=== PATIENT | male | born 1955 | race Caucasian/White ===

== ENCOUNTER 2024-09-07 13:06 | Outpatient (CLI) | payer OTHER, SELFPAY ==
--- NOTE | 2024-09-07 13:12 | ECG_ITS ---
Test Date: 2024-09-07 14:01:07 Measurements Intervals [place] Rate: 65 P: 106 MS: 185 QRS: 11 QRSD: 125 T: 25 QT: 406 QTc: 423 Interpretive Statements SINUS RHYTHM INCOMPLETE RIGHT BUNDLE BRANCH BLOCK BORDERLINE ECG No previous ECG available for comparison Electronically Signed On 09-08-2024 07:37:32 CDT by Hosea Martino M.D.
--- OUTSIDE RECORDS SUMMARY | 2024-09-07 13:12 | XMS_ITS | Encounter Summary ---
Author Organization [facility] Healthcare Address [address] [place] [address] Care Team Providers Care Finishing Technician Name Role Phone DamianChasidy viera RN Unavailable Unavailab le Terese Pritchard MD Primary Care Provider Encounter Details Date Type Department Care Team (Late st Contact Info) Description 09/13/2019 Telephone [facility] [address] [place] [address] Shelia Marrero, RT Social History Tobacco Use Types Packs/Day Years Used Date Smoking Tobacco: Former Cigarettes 1.5 40 1 971 - 2010 Smokeless Tobacco: Never Comments:quit 3 p pd Alcohol Use Standard Drinks/Week Comments Not Currently 0 (1 standard drink = 0.6 oz pure alcohol) quit 12 pack daily AUDIT-C Answer Date Recorded Frequency of Alcohol Consumption Never 11/25/2018 Average Number of Drinks Not on file 019 Frequency of Binge Drinking Not on file 11/02 Sex and Gender Information Value Date Recorded Sex Assigned at Not on file 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
--- OUTSIDE RECORDS SUMMARY | 2024-09-07 13:12 | XMS_ITS | Encounter Summary ---
Author Organization [facility] Address [address] [place] [address] Care Team Providers Care Staff Command And Control Officer Name Role Phone Terese Pritchard MD Primary Care Provider Tanner Bullock MD Unavailable [phone] Gurinder Wilkerson MD Unavailable [phone] Encounter Details Date Type Department Care Team (Latest Contact Info) Description 09/06/2024 Travel Social History Tobacco Use Types Packs/Day Years Used Date Smoking Tobacco: Former Cigarettes Q uit: 2012 Smokeless Tobacco: Never Alcohol Use Standard Drinks/Week Comments Not Currently 0 (1 standard drink = 0.6 oz pur e alcohol) occasional PHQ-2 Answer Date Recorded PHQ-2 Score - If the patient scores above 3, please move on to questions 3-9 0 11/27/2021 Comments Unknown Sex and Gender Information Value Date Recorded Sex Assigned at Choose not to disclose 01/2025 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 Legal Sex Male 10:05 PM MANAGER 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 Gender Identity Not on file Sexual Orientation Not on file Occupation Industry Job Start Date Job End Date Not on file Not on file Not on file Not on file documented as of this encounter Plan of Treatment Upcoming Encounters Date Type Department Care Team (Late st Contact Info) Description 10/20/2024 12:45 PM CDT Office Visit [facility] [place] [id number] Tanner Bullock MD [address] [facility] [address] [place] [address] documented as of this encounter Visit Diagnoses Not on filedocumented in this encounter Additional Health Concerns Infection Onset Date Last Indicated Resolved Time Tuberculosis Rule-Out 08/31/2024 08/31/2024 documented as of this encounter Care Teams Staff Command And Control Officer Relationship Specialty Start Date End Date Terese Pritchard MD [address] [place] [address] PCP - General FAMILY PRACTICE 11/12/18 Tanner Bullock MD [address] [facility] [address] [place] [address] Physician INTERVENTIONAL CARDIOLOGY 12/16/23 Gurinder Wilkerson MD [address] [facility] [address] [place] [address] SURGERY 09/02/24 documented as of this encounter
--- OUTSIDE RECORDS SUMMARY | 2024-09-07 13:12 | XMS_ITS | Encounter Summary ---
Author Organization [facility] Address [address] [place] [address] Care Team Providers Care Bullion Weigher Name Role Phone Terese Pritchard MD Primary Care Provider Tanner Bullock MD Unavailable [phone] Gurinder Wilkerson MD Unavailable Reason for Referral * Imaging (Routine) - Closed Specialty Diagnoses / Procedures Referred By Letitia stacy Referred To Contact RADIOLOGY Diagnoses Chronic cholecystitis Procedures US ABD LIMITED Gurinder Wilkerson MD [address] [place] [address] Phone: tel: fax: Referral ID Status Reason Start Date Expiration Date Visits Re quested Visits Authorized [id number] Closed 08/30/2024 08/30/2025 1 1 Reason for Visit * Imaging (Routine) - Closed Specialty Diagnoses / Procedures Referred By Letitia stacy Referred To Contact RADIOLOGY Diagnoses Chronic cholecystitis Procedures US ABD LIMITED Gurinder Wilkerson MD [address] [place] [address] Phone: tel: fax: Referral ID Status Reason Start Date Expiration Date Visits Re quested Visits Authorized [id number] Closed 08/30/2024 08/30/2025 1 1 Encounter Details Date Type Department Care Team (Late st Contact Info) Description 09/06/2024 8:51 AM CDT Hospital Encounter [facility] Ultrasound [address] [facility] [place], [place] [id number] Gurinder Wilkerson MD [address] [place] [address] Arrived Social History Tobacco Use Types Packs/Day Years Used Date Smoking Tobacco: Former Cigarettes Q uit: 2011 Smokeless Tobacco: Never Alcohol Use Standard Drinks/Week Comments Not Currently 0 (1 standard drink = 0.6 oz pur e alcohol) occasional PHQ-2 Answer Date Recorded PHQ-2 Score - If the patient scores above 3, please move on to questions 3-9 0 11/27/2021 Comments Unknown Sex and Gender Information Value Date Recorded Sex Assigned at Choose not to disclose 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 Gender Identity Not on file Sexual Orientation Not on file Occupation Industry Job Start Date Job End Date Not on file Not on file Not on file Not on file documented as of this encounter Plan of Treatment Upcoming Encounters Date Type Department Care Team ([facility] Contact Info) Description 10/20/2024 12:45 PM CDT Office Visit [facility] [place] [address] Tanner Bullock MD [address] [facility] [address] [address] documented as of this encounter Procedures Procedure Name Priority Date/Time Associated Diagnosis Comments US ABD LIMITED Routine 09/06/2024 9:33 AM CDT Chronic cholecystitis documented in this encounter Results * US ABD LIMITED (09/06/2024 9:33 AM CDT) Anatomical Region Laterality Modality Abdomen Computed Tomogra phy 09/06/2024 1:39 PM CDT Impressions 09/06/2024 1:46 PM CDT IMPRESSION: 1. Dilated gallbladder with multiple polyps. No gallbladder wall thickening or adjacent fluid. There was pain while imaging over the gallbladder. 2. Dilated common bile duct measuring 1.1 cm. 3. Hepatomegaly with fatty infiltration of the liver. 4. Cystic lesion within the head of the pancreas measuring 2.7 x 2.9 x 2.7 cm. Maximum axial dimension of this cyst on recent CT was 2.8 x 3.2 cm. Ordered By: GURINDER WILKERSON Interpreted By: Dulce Maria Ratliff, 09/06/2024 1:39 PM Narrative 09/06/2024 1:46 PM CDT [address] [place] [address] IMAGING STUDIES: US ABD LIMITED DATE: 09/06/2024 8:51 AM COMPARISON STUDIES: CT abdomen of 08/05/2024 CLINICAL HISTORY: Chronic cholecystitis. FINDINGS: Dilated enlarged gallbladder measuring up to 11.3 cm. No gallbladder wall thickening or adjacent fluid. There are multiple hyperechoic gallbladder polyps. No distinct shadowing foci.. Largest polyp measures 7 mm. There was pain while imaging over the gallbladder. Moderate fatty infiltration of the liver without focal mass..Hepatic and portal veins are patent.. Common bile duct measures.1.1 cm. Upper limits of normal in this age group is 7 mm. Hepatomegaly with cc dimension of 24 cm.. Right kidney is partially visualized without gross hydronephrosis. Partially visualized pancreas demonstrates cystic lesion within the head of the pancreas measuring 2.7 x 2.9 x 2.7 cm. Maximum axial dimension of this cyst on recent CT was 2.8 x 3.2 cm.. IVC is patent. Aorta could not be evaluated due to overlying bowel. Atherosclerotic nondilated aorta on recent CT. Procedure Note Enoch Ratliff MD - 09/06/[address] [place] [address] IMAGING STUDIES: US ABD LIMITED DATE: 09/06/2024 8:51 AM COMPARISON STUDIES: CT abdomen of 08/05/2024 CLINICAL HISTORY: Chronic cholecystitis. FINDINGS: Dilated enlarged gallbladder measuring up to 11.3 cm. No gallbladder wallthickening or adjacent fluid. There are multiple hyperechoic gallbladder polyps. No distinct shadowingfoci.. Largest polyp measures 7 mm. There was pain while imaging over the gallbladder. Moderate fatty infiltration of the liver without focal mass..Hepatic andportal veins are patent.. Common bile duct measures.1.1 cm. Upper limitsof normal in this age group is 7 mm. Hepatomegaly with cc dimension of 24 cm.. Right kidney is partially visualized without gross hydronephrosis. Partially visualized pancreas demonstrates cystic lesion within the headof the pancreas measuring 2.7 x 2.9 x 2.7 cm. Maximum axial dimension ofthis cyst on recent CT was 2.8 x 3.2 cm.. IVC is patent. Aorta could not be evaluated due to overlying bowel.Atherosclerotic nondilated aorta on recent CT. IMPRESSION: 1. Dilated gallbladder with multiple polyps. No gallbladder wallthickening or adjacent fluid. There was pain while imaging over thegallbladder. 2. Dilated common bile duct measuring 1.1 cm. 3. Hepatomegaly with fatty infiltration of the liver. 4. Cystic lesion within the head of the pancreas measuring 2.7 x 2.9 x2.7 cm. Maximum axial dimension of this cyst on recent CT was 2.8 x 3.2cm. Ordered By: GURINDER WILKERSON Interpreted By: Dulce Maria Ratliff, 09/06/2024 1:39 PM Gurinder Wilkerson MD ULTRASOUND Final Result documented in this encounter Visit Diagnoses Diagnosis Chronic cholecystitis documented in this encounter Additional Health Concerns Infection Onset Date Last Indicated Resolved Time Tuberculosis Rule-Out 08/31/2024 08/31/2024 documented as of this encounter Care Teams Bullion Weigher Relationship Specialty Start Date End Date Terese Pritchard MD [address] [place] [address] PCP - General FAMILY PRACTICE 11/12/18 Tanner Bullock MD [address] [facility] [address] [place] [address] Physician INTERVENTIONAL CARDIOLOGY 12/16/23 Gurinder Wilkerson MD [address] [place] [address] SURGERY 09/02/24 documented as of this encounter
--- OUTSIDE RECORDS SUMMARY | 2024-09-07 13:12 | XMS_ITS | Encounter Summary ---
Author Organization [facility] Address [address] [place] [address] Care Team Providers Care Visual Communications Instructor Name Role Phone Terese Pritchard MD Primary Care Provider Tanner Bullock MD Unavailable [phone] Gurinder Wilkerson MD Unavailable [phone] Encounter Details Date Type Department Care Team (Late st Contact Info) Description 12/25/2021 Medication Management [facility] Medical [facility] General Surgery - [address], [address] [place] [id number] Terese Pritchard MD [address] [place] [id number] Social History Tobacco Use Types Packs/Day Years [...] Choose not to disclose 01/2025 10:02 AM 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 No / Unsure 11/27/2021 1:23 PM CDT documented as of this encounter Plan of Treatment Upcoming Encounters Date Type Department Care Team (Late st Contact Info) Description 10/20/2024 12:45 PM CDT Office Visit [facility] [address] [place] [address] Tanner Bullock MD [address], [facility] [address] [place] [address] documented as of this encounter Visit Diagnoses Not on filedocumented in this encounter Additional Health Concerns Infection Onset Date Last Indicated Resolved Time Tuberculosis Rule-Out 08/31/2024 08/31/2024 documented as of this encounter Care Teams Visual Communications Instructor Relationship Specialty Start Date End Date Terese Pritchard MD [address] [place] [address] PCP - General FAMILY PRACTICE 11/12/18 Tanner Bullock MD [address], [facility] [address] [place] [address] Physician INTERVENTIONAL CARDIOLOGY 12/16/23 Gurinder Wilkerson MD [address] [facility] [address] [place] [address] SURGERY 09/02/24 documented as of this encounter
--- OUTSIDE RECORDS SUMMARY | 2024-09-07 13:13 | XMS_ITS | Clinical Summary ---
Author Organization [facility] Address [address] [place] [address] Care Team Providers Care Shoe Maker Name Role Phone Terese Victor MD Primary Care Provider Tanner Bullock MD Unavailable [phone] Gurinder Guevara MD Unavailable [phone] Allergies Active Allergy Reactions Criticality Noted Date Comments Atorvastatin Myalgias 12/16/2023 Cilostazol Other (see comment) Low 01/25/2019 if coughed would black out Morphine Itching,Nausea Only Low 11/25/2018 Tirzepatide Rash Medium 08/19/2023 Injection site reaction Rosuvastatin Myalgias Medium 11/25/2018 Muscle weakness Medications gemfibrozil 600 MG tablet Take 1 tablet (600 mg total) by mouth 2 (two) times daily. 9 Active acetaminophen 500 MG tablet Take 6-8 tablets (3,000-4,000 mg total) by mouth daily. 9 Active DULoxetine (CYMBALTA) 30 MG capsule Take 1 capsule (30 mg total) by mouth nightly at bedtime. at bedtime 2 Active econazole nitrate (SPECTAZOLE) 1 % cream Apply 1 Application topically. 2 Active HYDROcodone-steve taminophen (NORCO) 5-325 MG tablet Take 1 tablet by mouth 4 (four) times daily as needed. 2 Active clopidogrel (PLAVIX) 75 MG tablet Take 1 tablet (75 mg total) by mouth daily. 4 Active fluticasone propionate (FLONASE) 50 MCG/ACT nasal spray 1 spray by Nasal route 2 (two) times daily. Active losartan (COZAAR) 50 MG tablet Take 1 tablet (50 mg total) by mouth 2 (two) times daily. 4 Active meloxicam (MOBIC) 15 MG tablet Take 1 tablet (15 mg total) by mouth daily. 4 Active potassium chloride CR (K-TAB) 10 MEQ Tab CR tablet Take 1 tablet (10 mEq total) by mouth daily. 4 Active furosemide (LASIX) 20 MG tablet Take 1 tablet (20 mg total) by mouth daily. 4 Active amLODIPine (NORVASC) 5 MG tablet Take 1 tablet (5 mg total) by mouth daily. Take 1/2 tablet a day for three days then take 1 tab a day 90 tablet 3 4 12/17/19 25 Active OZEMPIC 2 mg/dose injection (PEN) Inject 2 mg into the skin once a week. 5 Active omega-3 fatty acid (FISH OIL) 1000 MG capsule Take 1 capsule (1,000 mg total) by mouth 2 (two) times daily. 180 capsule 3 5 03/29/19 26 Active alirocumab (PRALUENT) 75 mg/mL injection (PEN) Inject 1 mL (75 mg total) into the skin every 14 (fourteen) days. 6 mL 3 5 06/16/19 26 Active Active Problems Problem Noted Date Diagnosed Date Class 3 severe obesity due t o excess calories without serious comorbidity with body mass index (BMI) of 40.0 to 44.9 in adult 12/17/2023 Encounter for screening for malignant neoplasm o f colon 12/31/2021 Overview (12/31/2021): Added automatically from request for surgery [id number] PVD (peripheral vascular disease) 11/13/2018 Shortness of breath Mixed hyperlipidemia NAIF on CPAP Overview (12/17/2023): does not use his CPAP Encounters Date Type Department Care Team Description 09/06/2024 8:51 AM CDT Hospital Encounter [address] [place] [address] Gurinder Guevara MD Arrived 09/06/2024 Travel 09/02/2024 Telephone [facility] [address] [place] [address] Tanner Bullock MD Surgical Clearance 08/31/2024 12:23 PM CDT - 08/31/2024 11:59 PM CDT Hospital Encounter [facility] [address] Brenda Spain MD Discharge Disposition: Home or Self Care (Routine Discharge) 08/31/2024 12:23 PM CDT - 08/31/2024 11:59 PM CDT Hospital Encounter [facility] [place] [place] [address] Brenda Spain MD Discharge Disposition: Home or Self Care (Routine Discharge) 08/31/2024 Travel 08/31/2024 Telephone [facility] [address] [place] [address] Tanner Bullock MD Surgical Clearance 08/24/2024 Orders Only [facility] [place] [place] [address] Megan Dawkins MD 08/24/2024 Hospital Orders Only [facility] [place] [place] [address] Megan Dawkins MD 08/12/2024 7:49 AM CDT - 08/12/2024 11:59 PM CDT Hospital Encounter [facility] [address] [place] [address] Terese Victor MD Discharge Disposition: Home or Self Care (Routine Discharge) 2024 12:19 PM CDT - 2024 11:59 PM CDT Hospital Encounter [facility] CT [address] [place] [address] Terese Victor MD Discharge Disposition: Home or Self Care (Routine Discharge) 2024 Travel 08/05/2024 10:58 AM CDT - 08/05/2024 11:59 PM CDT Hospital Encounter [facility] CT [address] [place] [address] Terese Victor MD Discharge Disposition: Home or Self Care (Routine Discharge) 08/05/2024 9:00 AM CDT - 08/05/2024 10:57 AM CDT Hospital Encounter [facility] [address] [place] [address] Terese Victor MD Discharge Disposition: Home or Self Care (Routine Discharge) 08/05/2024 Orders Only [facility] [address] [place] [address] Terese Victor MD 08/05/2024 Travel 06/15/[address] [facility] ie [address] [place] [address] Tanner Bullock MD Medication (Refil/fill) from Last 3 Months Family History Relation Status Comments Father Mother Social History Tobacco Use Types Packs/Day Years Used Date Smoking Tobacco: Former Cigarettes Q uit: 2012 Smokeless Tobacco: Never Tobacco Cessation:Counseling Given: Not Answered Alcohol Use Standard Drinks/Week Comments Not Currently 0 (1 standard drink = 0.6 oz pur e alcohol) occasional PHQ-2 Answer Date Recorded PHQ-2 Score - If the patient scores above 3, please move on to questions 3-9 0 11/27/2021 Comments Unknown Sex and Gender Information Value Date Recorded Sex Assigned at Choose not to disclose 01/2025 10:02 AM [employer] Legal Sex Male 10:05 PM [employer] Gender Identity Not on file Sexual Orientation Not on file Occupation Industry Job Start Date Job End Date Not on file Not on file Not on file Not on file Last Filed Vital Signs Vital Sign Reading Time Taken Comments Blood Pressure 136/84 04/19/2024 2:09 PM [employer] Pulse 64 04/19/2024 2:09 PM [employer] Temperature 36.3 C (97.3 F) 12/04/2022 8:08 AM CDT Respiratory Rate 18 04/19/2024 2:09 PM [employer] Oxygen Saturation 98% 04/19/2024 2:09 PM [employer] Inhaled Oxygen Concentration - - Weight 131.7 kg (290 lb 6.4 oz) 04/19/2024 2:09 PM [employer] Height 182.2 cm (5' 11.75) 04/19/2024 2:[address] Body Mass Index 39.66 04/19/2024 2:09 PM [employer] Plan of Treatment Upcoming Encounters Date Type Department Care Team (Late st Contact Info) Description 10/20/2024 12:45 PM CDT Office Visit [facility] [place] [address] Tanner Bullock MD [address] [facility] [address] [place] [address] Health Maintenance Due Date Last Done Comments Colorectal Cancer Screening Colonoscopy (10 Years) 1955 Hepatitis C 08/10/1973 DTaP, Tdap and Td Vaccines ( 1 - Tdap) 08/10/1974 RSV Immunization or 60+ Years (1 - Risk 60-74 years 1-dose series) 2015 Pneumococcal Vaccine: 50+ Years (2 of 2 - PCV) 01/03/2016 01/02/2015 Zoster Vaccines (3 of 3) 03/09/2019 019, 03/14/2014 Annual Medicare Wellness Visit 08/10/2020 COVID-19 Vaccine (4 2023-2 5 season) 2023 12/18/2020, 05/27/2020, 04/28/2020 PHQ-2 (Physician [place]) 03/03/2024 Meningococcal B Vaccine Aged Out No l onger eligible based on patient's age to complete this topic Meningococcal Vaccine Aged Out No pamela carolina eligible based on patient's age to complete this topic RSV Immunizations Under 20 Months Aged Out No longer eligible b ased on patient's age to complete this topic Medical Devices Implanted Type Area Ruffling Machine Operator Device Identifier Shelf Expiration Date Model / Serial / Lot Iol Nish Duarte [id number] - [id number] Implanted:Qty: 1 on 12/04/2022 by Madelaine Whitley MD at [facility] Lens Right: Eye [employer] [id number] 12/30/2024 [id number] / [id number] / NONE Procedures Procedure Name Priority Date/Time Associated Diagnosis Comments US ABD LIMITED Routine 09/06/2024 9:33 AM CDT Chronic cholecystitis IR US GD PARA THYROID CYST ASPIR Routine 08/31/2024 2:21 PM CDT Mass of left side of neck CULTURE, WOUND, W/GRAM STAIN Routine 08/31/2024 2:10 PM CDT CULTURE, TB/AFB W/ STAIN Routine 08/31/2024 2:10 PM CDT Mass of left side of neck CULTURE, FUNGUS W/ STAIN Routine 08/31/2024 2:10 PM CDT Mass of left side of neck CULTURE, ANAEROBIC Routine 08/31/2024 2: 10 PM CDT Mass of left side of neck PLATELET COUNT, AUTO Routine 08/31/2024 12:30 PM CDT Neck mass PARTIAL THROMBOPLASTIN TIME,PTT Routine 08/31/2024 12:30 PM CDT Neck mass PROTHROMBIN TIME, VENOUS Routine 08/31/2024 12:30 PM CDT Neck mass CYTOLOGY GENERIC Routine 08/31/2024 12:0 0 AM CDT NM HEPATOBILIARY SCAN W/GB EJECTION FRACTION STAT 08/12/2024 11:10 AM CDT Generalized abdominal pain Other specified diseases of gallbladder CT SOFT TISSUE NECK W CON STAT 2024 12:48 PM CDT Neck mass CT ABD+PEL W CON STAT 08/05/2024 11:4 7 AM CDT Abdominal pain, generalized US SOFT TISS HEAD OR NECK STAT 08/05/2024 11:34 AM CDT Mass of left side of neck COMPREHENSIVE METABOLIC PANEL STAT 08/05/2024 9:02 AM CDT Abdominal pain, generalized CBC W/DIFF AUTOMATED STAT 08/05/2024 9:02 AM CDT Abdominal pain, generalized from Last 3 Months Results * US ABD LIMITED (09/06/2024 9:33 [...] 2.8 x 3.2 cm. Ordered By: GURINDER GUEVARA Interpreted By: Dulce Maria Ratliff, 09/06/2024 1:39 PM Narrative 09/06/2024 1:46 PM CDT [address] [place] [address] IMAGING STUDIES: US ABD LIMITED DATE: 09/06/2024 [...] Procedure Note Enoch Ratliff MD - 09/06/[address] [place] [address] IMAGING STUDIES: US ABD LIMITED DATE: 09/06/2024 [...] was 2.8 x 3.2cm. Ordered By: GURINDER GUEVARA Interpreted By: Dulce Maria Ratliff, 09/06/2024 1:39 PM us Gurinder Guevara MD ULTRASOUND Final Result * IR US GD PARA THYROID CYST ASPIR (08/31/2024 2:21 PM CDT) Anatomical Region Laterality Modality Thyroid Interventional R adiology, Radiographic Imaging, Radiographic Imaging 08/31/2024 2:36 PM CDT Impressions 08/31/2024 2:40 PM CDT IMPRESSION: 1. Right submandibular region 3.4 x 2.1 x 3.1 cm cystic lesion by ultrasound corresponding with the CT neck finding. 2. PA Ultrasound-guided needle aspiration performed yielding 10.1 mL of yellow slightly cloudy fluid with complete resolution of cystic focus; fluid sent for analysis Ordered By: BRENDA SPAIN Interpreted By: Megan Dawkins MD, 08/31/2024 2:36 PM Narrative 08/31/2024 2:40 PM CDT [address] [address] Procedure: IR ultrasound-guided left neck lesion needle aspiration Exam Date/Time: 08/31/2024 2:20 PM Indication: 69 male with left neck submandibular lesion presenting for needle aspiration versus fine-needle sampling versus needle biopsy Comparison: CT soft tissue neck 2024 Procedure technique and findings: Informed verbal and consent was obtained from the patient. The procedure was discussed including the rationale, alternatives, benefits and risks including but not limited to infection, bleeding and damage to adjacent structures and inability to sample the lesion. Was performed showing a superficial the circumscribed anechoic cystic lesion with increased through transmission measuring 3.4 x 2.1 x 3.[address] neck finding. Based on its ultrasound appearance and decision was made to proceed with needle aspiration.. Timeout was performed. Sterile ultrasound technique, including hand wash with soap and water, was employed for the procedure. 1% lidocaine was administered for local anesthesia at the skin. 21-gauge needle was then advanced under ultrasound guidance into the center of the lesion and syringe aspiration performed yielding 10.1 mL of yellowish slightly cloudy fluid with complete collapse of the collection. Residual 1 cm slightly hypoechoic focus likely representing collapsed abdi of the lesion. The sample was collected and sent for analysis. No Fine-needle aspiration or biopsy sampling performed The patient remained asymptomatic tolerating the procedure well. No immediate complication. Procedure Note Megan Dawkins MD - 08/31/2024 [facility] [address] [place], [place] [address] Procedure: IR ultrasound-guided left neck lesion needle aspiration Exam Date/Time: 08/31/2024 2:20 PM Indication: 69 male with left neck submandibular lesion presenting forneedle aspiration versus fine-needle sampling versus needle biopsy Comparison: CT soft tissue neck 2024 Procedure technique and findings: Informed verbal and consent was obtained from the patient. The procedurewas discussed including the rationale, alternatives, benefits and risksincluding but not limited to infection, bleeding and damage to adjacentstructures and inability to sample the lesion. Was performed showing a superficial the circumscribed anechoic cysticlesion with increased through transmission measuring 3.4 x 2.1 x 3.1corresponding to the CT neck finding. Based on its ultrasound appearanceand decision was made to proceed with needle aspiration.. Timeout was performed. Sterile ultrasound technique, including hand wash with soap and water, wasemployed for the procedure. 1% lidocaine was administered for localanesthesia at the skin. 21-gauge needle was then advanced under ultrasoundguidance into the center of the lesion and syringe aspiration performedyielding 10.1 mL of yellowish slightly cloudy fluid with complete collapseof the collection. Residual 1 cm slightly hypoechoic focus likelyrepresenting collapsed abdi of the lesion. The sample was collected andsent for analysis. No Fine-needle aspiration or biopsy sampling performed The patient remained asymptomatic tolerating the procedure well. Noimmediate complication. IMPRESSION: 1. Right submandibular region 3.4 x 2.1 x 3.1 cm cystic lesion byultrasound corresponding with the CT neck finding. 2. PA Ultrasound-guided needle aspiration performed yielding 10.1 mL ofyellow slightly cloudy fluid with complete resolution of cystic focus;fluid sent for analysis Ordered By: BRENDA SPAIN Interpreted By: Megan Dawkins MD, 08/31/2024 2:36 PM us Brenda Spain MD INTERVENTIONAL RADIOLOGY Final Result * CULTURE, WOUND, W/GRAM STAIN (08/31/2024 2:10 PM CDT) SPEC DESCRIPTION NECK 08/31/2024 3:20 PM CDT [facility] SPECIAL REQUESTS NO SPECIAL REQUEST 08/31/2024 3:20 PM CDT [facility] GRAM STAIN RESULT NO WHITE BLOOD CELLS SEEN 08/31/2024 10:27 PM CDT [facility] GRAM STAIN RESULT NO ORGANISMS SEEN 08/31/2024 10:27 PM CDT [facility] CULTURE RESULT NO GROWTH 3 DAYS 09/03/2024 8:06 AM CDT [facility] SPECIMEN FROM HEAD AND NECK STRUCTURE / Unknown 08/31/2024 2:10 PM CDT 08/31/2024 3:18 PM CDT us Megan Dawkins MD MICROBIOLOGY - GENERAL ORDERABL ES Final Result [facility] [address] [place] [address], [place] [phone] * CULTURE ANAEROBIC (08/31/2024 2:10 PM CDT) SPEC DESCRIPTION ASPIRATE 08/31/2024 2:11 PM CDT [facility] SPECIAL REQUESTS NO SPECIAL REQUEST 08/31/2024 2:11 PM CDT [facility] CULTURE RESULT NO ANAEROBES ISOLATED AT 5 DAYS. 09/05/2024 7:00 AM CDT [facility] SPECIMEN OBTAINED BY ASPIRATION / Unknown 08/31/2024 2:10 PM CDT 08/31/2024 2:52 PM CDT us Megan Dawkins MD MICROBIOLOGY - GENERAL ORDERABL ES Final Result [facility] [address] [place] [address], [place] [phone] * (ABNORMAL) PLATELET COUNT, AUTO (08/31/2024 12:30 PM CDT) PLT 198 130 - 400 x10'3/uL 08/31/2024 12:40 PM CDT [facility] MPV 9.0(L) 9.3 - 12.2 FL 08/31/2024 12:40 PM CDT [facility] 08/31/2024 12:3 0 PM CDT us Megan Dawkins MD LABORATORY Final Result Performing Organization Address City/[facility]/ZIP Co de Phone Number [facility] [address] [place] [address], [place] [phone] * (ABNORMAL) PTT, PARTIAL THROMBOPLASTIN TIME (08/31/2024 12:30 PM CDT) PTT 36.8(H) 25.1 - 36.5 SEC 08/31/2024 1:35 PM CDT [facility] 08/31/2024 12:3 0 PM CDT us Megan Dawkins MD LABORATORY Final Result Performing Organization Address [facility]/ZIP Co de Phone Number [facility] [address] [place] [address], [place] [phone] * PROTIME/INR, VENOUS (08/31/2024 12:30 PM CDT) PROTIME 11.9 10.2 - 12.9 SEC 08/31/2024 1:35 PM CDT [facility] INR 1.0 08/31/2024 1:35 PM CDT [facility] Comment: Recommended INR Therapeutic Goals: 2.0-3.0 Routine Therapy 2.5-3.5 Mechanical Prosthetic Valves (High Risk) 08/31/2024 12:3 0 PM CDT Megan Dawkins MD LABORATORY Final Result [facility] [address] [place] [address], * CYTOLOGY GENERIC (08/31/2024 12:00 AM CDT) CYTOLOGY OTHER [facility] Department of Laboratory Medicine [address] [place] [address] , extension [id number] Pathology Report Non-gynecologic Cytology Report Name: DEMETRIUS SAENZ Specimen #: [id number] Age: 6 1955 (Age: 69) Location: [facility] Sex: M Procedure Date: 08/31/2024 Hospital #: [id number] Date Received: 09/01/2024 Date Reported: 09/03/2024 Provider: BRENDA SPAIN MD Source: CYST, RIGHT SUBMANDIBULAR, ASPIRATION Clinical History: Mass of left side of neck FINAL DIAGNOSIS: Cyst, right submandibular, aspiration: -Satisfactory for evaluation -Negative for malignant cells -Cyst contents and crystals Diagnosis Comment: The predominate crystals 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 Gross Description: SPECIMEN RECEIVED: 30 cc's in cytology fixative SLIDES PREPARED: 1 ThinPrep, all slides were microscopically examined by a pathologist. STAINS: Papanicolaou Initial cytologic screening, interpretation, and sign out were performed at [facility], [address] [facility] [address]. Electronically Signed Out BRIAN SANTO MD [facility] 08/31/2024 09/01/2024 11:52 AM CDT Comment:CYST, RIGHT SUBMANDI BULAR, ASPIRATION us Brenda Spain MD PATHOLOGY/CYTOLOGY ORDERABLES F inal Result [facility] [address] [place] [address], [place] [phone] [id number] * NM HEPATOBILIARY SCAN W/GB EJECTION FRACTION (08/12/2024 11:10 AM CDT) Anatomical Region Laterality Modality Abdomen Computed Tomogra phy 08/12/2024 11:1 6 AM CDT Impressions 08/12/2024 11:20 AM CDT IMPRESSION: 1. Delayed visualization of the gallbladder with low ejection fraction. Consistent with gallbladder dysfunction versus chronic cholecystitis. Ordered By: TERESE VICTOR Interpreted By: Dulce Maria Ratliff, 08/12/2024 11:16 AM Narrative 08/12/2024 11:20 AM CDT [address] [place] [address] IMAGING STUDIES: NM HEPATOBILIARY SCAN W/GB EJECTION FRACTION DATE: 08/12/2024 8:00 AM INDICATION: Abdominal pain . Nausea. Constipation. Symptoms for 3 weeks. COMPARISON: No prior studies for comparison.. Correlation with CT abdomen of 08/05/2024 6.5 mCi technetium 99M Choletec, 8 ounces of fatty ensure meal with 11 g of fat consumed at 120 minutes postinjection FINDINGS: Normal uptake of radionuclide within the liver. Gallbladder is seen at 90 minutes. Markedly delayed. Gallbladder ejection fraction measures 2%. Normal is above 35% No evidence of cystic duct or common bile duct obstruction. Procedure Note Enoch Ratliff MD - 08/12/[address] [place] [address] IMAGING STUDIES: NM HEPATOBILIARY SCAN W/GB EJECTION FRACTIONDATE:08/12/2024 8:00 AM INDICATION: Abdominal pain . Nausea. Constipation. Symptoms for 3weeks. COMPARISON: No prior studies for comparison.. Correlation with CT abdomenof 08/05/2024 6.5 mCi technetium 99M Choletec, 8 ounces of fatty ensure meal with 11 gof fat consumed at 120 minutes postinjection FINDINGS: Normal uptake of radionuclide within the liver. Gallbladder is seen at 90minutes. Markedly delayed. Gallbladder ejection fraction measures 2%. Normal is above 35% No evidence of cystic duct or common bile duct obstruction. IMPRESSION: 1. Delayed visualization of the gallbladder with low ejection fraction.Consistent with gallbladder dysfunction versus chronic cholecystitis. Ordered By: TERESE VICTOR Interpreted By: Dulce Maria Ratliff, 08/12/2024 11:16 AM Terese Victor MD NUC MED Final Result * CT SOFT TISSUE NECK W CON (2024 12:48 PM CDT) Anatomical Region Laterality Modality Neck Computed Tomogra phy 2024 1:37 PM CDT Impressions 2024 1:46 PM CDT IMPRESSION: 1) Palpable abnormality corresponds to a 3.1 x 2.4 cm cystic mass lateral to the left submandibular gland. This is not specific, however differential diagnosis could include cystic lymph node metastasis. Correlation with ultrasound evaluation of the left neck cystic mass would be recommended. In addition, ultrasound of the thyroid gland would be recommended as the thyroid gland is obscured by streak artifact on this study. Ultimately, ultrasound-guided aspiration of this lesion may be required for diagnosis. Ordered By: TERESE VICTOR Interpreted By: Pierre Montes MD, 2024 1:37 PM Narrative 2024 1:46 PM CDT [address] [place] [address] Examination: CT SOFT TISSUE NECK W CON Exam time: 2024 12:24 PM Clinical history: Left submandibular palpable abnormality for several weeks Comparison: None Technique: Axial images obtained from skull base to lung apices with intravenous injection of 95 mL Isovue 370 contrast using low-dose CT technique. Findings: Visualized portions of the skull base are unremarkable. No orbital lesions are demonstrated. Visualized paranasal sinuses are clear. Mastoid air cells are clear. The nasopharynx and the oropharynx are grossly unremarkable. There is no abnormal displacement of parapharyngeal fat pads. The epiglottis/supraglottic larynx, hypopharynx and larynx are unremarkable. Parotid and submandibular glands are normal in appearance bilaterally. The thyroid gland is significantly obscured by streak artifact from the patient's shoulders. A subtle thyroid lesion could not be excluded based on this study. The palpable abnormality corresponds to a superficial cystic mass in the left posterior submandibular region measuring measuring 3.1 x 2.4 cm. This is immediately deep to the platysma and lateral to the submandibular gland. This is not specific, however cystic lymph node metastasis could not be excluded and this will require further evaluation. There is no inflammatory change to suggest infection/cellulitis. No other evidence of neck mass or adenopathy is demonstrated. Chronic degenerative changes lower cervical spine. Procedure Note Pierre Montes MD - [address] [place] [address] Examination: CT SOFT TISSUE NECK W CON Exam time: 2024 12:24 PM Clinical history: Left submandibular palpable abnormality for severalweeks Comparison: None Technique: Axial images obtained from skull base to lung apices withintravenous injection of 95 mL Isovue 370 contrast using low-dose CTtechnique. Findings: Visualized portions of the skull base are unremarkable. Noorbital lesions are demonstrated. Visualized paranasal sinuses are clear.Mastoid air cells are clear. The nasopharynx and the oropharynx are grossly unremarkable. There is noabnormal displacement of parapharyngeal fat pads. The epiglottis/supraglottic larynx, hypopharynx and larynx areunremarkable. Parotid and submandibular glands are normal in appearancebilaterally. The thyroid gland is significantly obscured by streakartifact from the patient's shoulders. A subtle thyroid lesion could notbe excluded based on this study. The palpable abnormality corresponds to a superficial cystic mass in theleft posterior submandibular region measuring measuring 3.1 x 2.4 cm. Thisis immediately deep to the platysma and lateral to the submandibulargland. This is not specific, however cystic lymph node metastasis couldnot be excluded and this will require further evaluation. There is noinflammatory change to suggest infection/cellulitis. No other evidence of neck mass or adenopathy is demonstrated. Chronicdegenerative changes lower cervical spine. IMPRESSION: 1) Palpable abnormality corresponds to a 3.1 x 2.4 cm cystic mass lateralto the left submandibular gland. This is not specific, howeverdifferential diagnosis could include cystic lymph node metastasis.Correlation with ultrasound evaluation of the left neck cystic mass wouldbe recommended. In addition, ultrasound of the thyroid gland would berecommended as the thyroid gland is obscured by streak artifact on thisstudy. Ultimately, ultrasound-guided aspiration of this lesion may berequired for diagnosis. Ordered By: TERESE VICTOR Interpreted By: Pierre Montes MD, 2024 1:37 PM Terese Victor MD CT Final Result * CT ABD+PEL W CON (08/05/2024 11:47 AM CDT) Anatomical Region Laterality Modality Abdomen Computed Tomogra phy 08/05/2024 11:5 6 AM CDT Impressions 08/05/2024 11:59 AM CDT IMPRESSION: 1. Large cyst within the head of the pancreas. Endoscopic ultrasound is recommended for further characterization 2. Moderate to severe distention of the gallbladder without evidence of stones Ordered By: TERESE VICTOR Interpreted By: Philippe Donahue MD, 08/05/2024 11:56 AM Narrative 08/05/2024 11:59 AM CDT [address] [place] [address] [address] ABDOMEN AND PELVIS WITH CONTRAST Exam date:08/05/2024 11:28 AM Clinical history: Abdomen pain. Technique: Dynamic helical images of the abdomen and pelvis were obtained. The patient received approximately 100 mL of Isovue 370 nonionic intravenous contrast through an IV in the right antecubital fossa. A dose lowering technique was used for this procedure, which may include, but is not limited to, dose reduction technique, automated exposure control, the use of iterative reconstruction, and ALARA (As Low As Reasonably Achievable) / Image Gently techniques. Comparison: July 08, 2022. FINDINGS: Images of the lower thorax demonstrate the visualized portion of the heart to appear normal. The lung bases are clear. Images of the abdomen demonstrate the overall size and morphology of the liver to be within normal limits. No hepatic lesions are observed. No ascites is seen. The gallbladder is moderate to severely distended. No stones are observed. There is no evidence to suggest cholecystitis. There is a large cyst within the head of the pancreas. This measures approximately 2.8 x 3.8 x 3.5 cm in greatest dimensions. There is no enhancement of the peripheral aspect of this cyst. However, given the size endoscopic ultrasound is recommended for further characterization. The remainder the pancreas is within normal limits. The spleen and adrenal glands appear normal. The kidneys are normal in size bilaterally. There is normal symmetric enhancement after the administration of contrast. No stones or hydronephrosis is apparent. Both ureters follow normal expected course through the retroperitoneum. Images of the pelvis demonstrate the urinary bladder to appear normal. The prostate is normal in size. The stomach and small bowel have a normal overall appearance. The colon appears normal. No adenopathy or abnormal fluid collections are present Procedure Note Philippe Donahue MD - 08/05/[address] [place] [address] [address] ABDOMEN AND PELVIS WITH CONTRAST Exam date:08/05/2024 11:28 AM Clinical history: Abdomen pain. Technique: Dynamic helical images of the abdomen and pelvis were obtained.The patient received approximately 100 mL of Isovue 370 nonionicintravenous contrast through an IV in the right antecubital fossa. A doselowering technique was used for this procedure, which may include, but isnot limited to, dose reduction technique, automated exposure control, theuse of iterative reconstruction, and ALARA (As Low As ReasonablyAchievable) / Image Gently techniques. Comparison: July 08, 2022. FINDINGS: Images of the lower thorax demonstrate the visualized portion of the heartto appear normal. The lung bases are clear. Images of the abdomen demonstrate the overall size and morphology of theliver to be within normal limits. No hepatic lesions are observed. Noascites is seen. The gallbladder is moderate to severely distended. Nostones are observed. There is no evidence to suggest cholecystitis. Thereis a large cyst within the head of the pancreas. This measuresapproximately 2.8 x 3.8 x 3.5 cm in greatest dimensions. There is noenhancement of the peripheral aspect of this cyst. However, given the sizeendoscopic ultrasound is recommended for further characterization. Theremainder the pancreas is within normal limits. The spleen and adrenalglands appear normal. The kidneys are normal in size bilaterally. There isnormal symmetric enhancement after the administration of contrast. Nostones or hydronephrosis is apparent. Both ureters follow normal expectedcourse through the retroperitoneum. Images of the pelvis demonstrate the urinary bladder to appear normal. Theprostate is normal in size. The stomach and small bowel have a normal overall appearance. The colonappears normal. No adenopathy or abnormal fluid collections are present IMPRESSION: 1. Large cyst within the head of the pancreas. Endoscopic ultrasound isrecommended for further characterization 2. Moderate to severe distention of the gallbladder without evidence ofstones Ordered By: TERESE VICTOR Interpreted By: Philippe Donahue MD, 08/05/2024 11:56 AM Terese Victor MD CT Final Result * US SOFT TISS HEAD OR NECK (08/05/2024 11:34 AM CDT) Anatomical Region Laterality Modality Head, Neck Computed Tomogra phy 08/05/2024 12:0 0 PM CDT Impressions 08/05/2024 12:01 PM CDT IMPRESSION: 1.Large subcutaneous cyst Ordered By: TERESE VICTOR Interpreted By: Philippe Donahue MD, 08/05/2024 12:00 PM Narrative 08/05/2024 12:01 PM CDT [address] [place] [address] LIMITED ULTRASOUND OF THE LEFT NECK NEAR THE JAW LINE Exam date: August 05, 2024 CLINICAL HISTORY: Palpable mass. TECHNIQUE: Transverse and longitudinal grayscale and color Doppler ultrasound was performed over the palpable abnormality within the superior lateral left neck. Images are reviewed without prior studies available for comparison. FINDINGS: Images reveal a large cyst superior to the submandibular gland. This measures 3.0 x 1.9 x 3.7 cm in greatest dimensions. Its relationship to other structures within the neck are uncertain. Consider CT of the cervical soft tissues with contrast for further characterization. Procedure Note Philippe Donahue MD - 08/05/[address] [place] [address] LIMITED ULTRASOUND OF THE LEFT NECK NEAR THE JAW LINE Exam date: August 05, 2024 CLINICAL HISTORY: Palpable mass. TECHNIQUE: Transverse and longitudinal grayscale and color Dopplerultrasound was performed over the palpable abnormality within the superiorlateral left neck. Images are reviewed without prior studies available forcomparison. FINDINGS: Images reveal a large cyst superior to the submandibular gland. Thismeasures 3.0 x 1.9 x 3.7 cm in greatest dimensions. Its relationship toother structures within the neck are uncertain. Consider CT of thecervical soft tissues with contrast for further characterization. IMPRESSION: 1.Large subcutaneous cyst Ordered By: TERESE VICTOR Interpreted By: Philippe Donahue MD, 08/05/2024 12:00 PM us Terese Victor MD ULTRASOUND Final Result * (ABNORMAL) COMPREHENSIVE METABOLIC PANEL (08/05/2024 9:02 AM CDT) GLUCOSE 99 70 - 99 MG/DL 08/05/2024 9:34 AM CDT [facility] BUN 18 7 - 18 MG/DL 08/05/2024 9:34 AM CDT [facility] CREATININE S/P/B 1.16 0.50 - 1.20 MG/DL 08/05/2024 9:34 AM CDT [facility] SODIUM S/P/B 136 136 - 145 MMOL/L 08/05/2024 9:34 AM CDT [facility] POTASSIUM S/P/B 4.2 3.5 - 5.1 MMOL/L 08/05/2024 9:34 AM CDT [facility] CHLORIDE S/P/B 102 100 - 108 MMOL/L 08/05/2024 9:34 AM CDT [facility] CO2 27.7 21.0 - 32.0 MMOL/L 08/05/2024 9:34 AM CDT [facility] CALCIUM S/P/B 9.5 8.5 - 10.1 MG/DL 08/05/2024 9:34 AM CDT [facility] BILIRUBIN TOTAL S/P/B 0.7 0.2 - 1.2 MG/DL 08/05/2024 9:34 AM CDT [facility] Comment: THIS ASSAY IS NOT RECOMMENDED FOR PATIENTS UNDERGOING TREATMENT WITH ELTROMBOPAG DUE TO THE POTENTIAL FOR FALSELY ELEVATED RESULTS. TOTAL PROTEIN S/P/B 7.9 6.4 - 8.2 G/DL 08/05/2024 9:34 AM CDT [facility] ALBUMIN S/P/B 4.3 3.4 - 5.0 G/DL 08/05/2024 9:34 AM CDT [facility] AST 27 15 - 37 U/L 08/05/2024 9:34 AM CDT [facility] ALT 39 16 - 60 U/L 08/05/2024 9:34 AM CDT [facility] ALKALINE PHOSPHATASE S/P/B 161(H) 50 - 136 U/L 08/05/2024 9:34 AM CDT [facility] ANION GAP 6.3 5.0 - 15.0 MMOL/L 08/05/2024 9:34 AM CDT [facility] BUN CREATININE RATIO 15.5 6 - 26 08/05/2024 9:34 AM CDT [facility] A/G RATIO 1.2 1.0 - 2.5 RATIO 08/05/2024 9:34 AM CDT [facility] GFR ESTIMATE 69(L) >90 ML/MIN/1.7 3 M2 08/05/2024 9:34 AM CDT [facility] Comment: NOTE: eGFR is not calculated for patients <18 years of age. This is an estimated GFR calculation using the new CKD EPI creatinine equation without race and so does not require a correction factor for race. This estimated GFR should not be used for calculating drug doses. 08/05/2024 9:02 AM CDT Terese Victor MD LABORATORY Final Result [address] [place] [address], * (ABNORMAL) CBC W/DIFF AUTOMATED (08/05/2024 9:02 AM CDT) WBC 6.09 4.50 - 11.00 x10'3/uL 08/05/2024 9:10 AM CDT [facility] RBC 5.05 4.50 - 5.90 x10'6/uL 08/05/2024 9:10 AM CDT [facility] HGB 14.6 14.0 - 18.0 G/DL 08/05/2024 9:10 AM CDT [facility] HCT 43.0 43.0 - 54.0 % 08/05/2024 9:10 AM CDT [facility] MCV 85.1 80.0 - 100.0 FL 08/05/2024 9:10 AM CDT [facility] MCH 28.9 26.0 - 34.0 PG 08/05/2024 9:10 AM CDT [facility] MCHC 34.0 31.0 - 37.0 G/DL 08/05/2024 9:10 AM CDT [facility] RDW 13.4 11.6 - 14.8 % 08/05/2024 9:10 AM CDT [facility] PLT 232 130 - 400 x10'3/uL 08/05/2024 9:10 AM CDT [facility] MPV 9.1 7.0 - 12.0 FL 08/05/2024 9:10 AM CDT [facility] CBC COMMENT AUTOMATED RBC MORPHOLOGY AND PLATELET EVALUATION NORMAL 08/05/2024 9:10 AM CDT [facility] NEUTROPHILS % 65.1 40.0 - 74.0 % 08/05/2024 9:10 AM CDT [facility] LYMPHOCYTES % 20.9 14.0 - 46.0 % 08/05/2024 9:10 AM CDT [facility] MONOCYTES % 8.2 4.0 - 13.0 % 08/05/2024 9:10 AM CDT [facility] EOSINOPHILS 4.3 0.0 - 7.0 % 08/05/2024 9:10 AM CDT [facility] BASOPHILS 1.0 0.0 - 3.0 % 08/05/2024 9:10 AM CDT [facility] IMMATURE GRANS % 0.5(H) 0.0 - 0.43 % 08/05/2024 9:10 AM CDT [facility] NRBC % 0.0 % 08/05/2024 9:10 AM CDT [facility] ABS. NEUTROPHILS TOTAL 3.97 1.69 - 7.81 x10'3/uL 08/05/2024 9:10 AM CDT [facility] ABS. LYMPHOCYTES 1.27 0.21 - 5.42 x10'3/uL 08/05/2024 9:10 AM CDT [facility] ABS. MONOCYTES 0.50 0.04 - 1.37 x10'3/uL 08/05/2024 9:10 AM CDT [facility] ABS. EOSINOPHILS 0.26 0.00 - 0.68 x10'3/uL 08/05/2024 9:10 AM CDT [facility] ABS. BASOPHILS 0.06 0.00 - 0.08 x10'3/uL 08/05/2024 9:10 AM CDT [facility] ABS. IMMATURE GRANULOCYTES 0.03 0.00 - 0.06 x10'3/uL 08/05/2024 9:10 AM CDT [facility] ABS. NUCLEATED RBC'S 0.00 0.00 - 0.01 x10'3/uL 08/05/2024 9:10 AM CDT [facility] 08/05/2024 9:02 AM CDT us Terese Victor MD LABORATORY Final Result [facility] [address] [place] [address], from Last 3 Months Additional Health Concerns Infection Onset Date Last Indicated Tuberculosis Rule-Out 08/31/2024 08/31/2024 Insurance [employer] Advance Directives * Full Code (Latest Code Status on File) Date Activated Date Inactivated Comments 12/04/2022 9:48 AM 12/04/2022 12:22 PM Care Teams Shoe Maker Relationship Specialty Start Date End Date Terese Victor MD [address] [place] [address] PCP - General FAMILY PRACTICE 11/12/18 Tanner Bullock MD [address] [facility], [facility] [id number] [place] [address] Physician INTERVENTIONAL CARDIOLOGY 12/16/23 Gurinder Guevara MD [address] [place] [address] SURGERY 09/02/24
--- OUTSIDE RECORDS SUMMARY | 2024-09-07 13:13 | XMS_ITS | Referral Summary ---
Author Organization [facility] Address [address] [place] [address] Care Team Providers Care Lead Engineer Name Role Phone Chasidy Salgado RN [facility] Terese Ferrer MD Primary Care Provider Encounters Date Type Department Care Team Description 5 11:58 AM CDT Anesthesia Event [facility] [address] [place] [phone] Merari Armas MD Winfrey, Tonya M., ABDULLAHI 5 12:00 PM CDT - 5 12:30 PM CDT Surgery [facility] [address] [place] [phone] Prem Ho MD ESOPHAGOGASTRODUODENOSCOPY ULTRASOUND EXAM LIMITED 5 10:54 AM CDT - 5 12:48 PM CDT Hospital Encounter [facility] [address] [place] [phone] Prem Ho MD Pancreas cyst Discharge Disposition: Discharge to home or self care 5 Telephone [facility] Gastroenterology [address] [place] [address] Office [address] [place] [phone] Starla Chandler RN 5 Telephone [facility] [address] [place] [address] Medical Office Building [address], [address] [place] [address] Starla Chandler RN 5 Telephone [facility] [address] [place] [address] Office Building [address], [address] [place] [phone] Starla Chandler RN 5 Orders Only [facility] [address] [place] [address] Office [address] [place] [phone] Odessa Stacy RN Pancreatic cyst (Primary Dx); Hepatic steatosis 5 Orders Only [facility] GASTR[facility]OLOG[facility] Scanning, Provider 5 10:00 AM CDT - 5 11:59 PM CDT Hospital Encounter [facility] [address] [place] [address] [address] [place] [address] Acute knee pain, unspecified laterality Discharge Disposition: Discharge to home or self care 5 10:30 AM CDT Office Visit [facility] Orthopaedic Surgery [address] [place] [address] Office [facility] [address] [place] [phone] Cheng Ramirez MD Unilateral primary osteoarthritis, right knee (Primary Dx); Acute knee pain, unspecified laterality 5 Telephone [facility] Orthopaedic Surgery [address] [place] [address] Office [address] [place] [phone] Ezio Villagran MD from Last 3 Months Allergies Active Allergy Reactions Criticality Noted Date Comments Atorvastatin Muscle pain Medium 12/16/2023 Cilostazol Other (See comments) Low 01/25/2019 if coughed would black out Morphine Itching,Nausea only Low 11/25/2018 Rosuvastatin Muscle pain Medium 11/25/2018 Muscle weakness Tirzepatide Rash Medium 08/19/2023 Injection site reaction Medications fluticasone propionate (FLONASE) 50 mcg/actuation nasal sprayIndication s:Allergic Rhinitis Administer 2 sprays into each nostril nightly 2 9 Active gemfibrozil (LOPID) 600 mg tabletIndicatio ns:hypertriglyc eridemia Take 1 tablet (600 mg total) by mouth 2 (two) times a day 2 9 Active meloxicam (MOBIC) 15 mg tablet Take 1 tablet (15 mg total) by mouth every morning 1 9 Active clopidogrel (PLAVIX) 75 mg tabletIndicatio ns:prevent clots Take 1 tablet (75 mg total) by mouth every morning 0 9 Active acetaminophen (TYLENOL) 500 mg tabletIndicatio ns:Pain Take 2 tablets (1,000 mg total) by mouth every 6 (six) hours as needed for pain 9 Active losartan (COZAAR) 50 mg tabletIndicatio ns:hypertension Take 1 tablet (50 mg total) by mouth 2 (two) times a day 0 9 Active atorvastatin (LIPITOR) 20 mg tabletIndicatio ns:hyperlipidem ia Take 1 tablet (20 mg total) by mouth nightly Active Ozempic 2 mg/dose (8 mg/3 mL) pen injector injection Inject 2 mg under the skin once a week On friday 5 Active potassium chloride ER 10 mEq CR tablet Take 1 tablet/capsule (10 mEq total) by mouth every morning Active HYDROcodone-steve taminophen (NORCO) 5-325 mg per tablet Take 1 tablet by mouth 3 (three) times a day as needed 5 Active alirocumab (Praluent Pen) 75 mg/mL pen injector Inject 75 mg under the skin every 2 (two) weeks 5 03/29/19 26 Active amLODIPine (NORVASC) 5 mg tabletIndicatio ns:hypertension Take 1 tablet (5 mg total) by mouth every morning 5 Active furosemide (LASIX) 20 mg tablet Take 1 tablet (20 mg total) by mouth every morning Active omega-3 fatty acids-fish oil 300-1,000 mg capsule Take 1 capsule (1,000 mg total) by mouth every morning 5 03/29/19 26 Active Nexlizet 180-10 mg tablet Take 1 tablet by mouth every morning 5 Active docusate sodium (DOK) 100 mg tabletIndicatio ns:constipation Take 1 tablet (100 mg total) by mouth 2 (two) times a day Active polyethylene glycol (MIRALAX) 17 gram packetIndicatio ns:constipation Take 1 packet (17 g total) by mouth as needed for constipation Active econazole 1 % cream Apply topically as needed for irritation or rash Active buPROPion XL (WELLBUTRIN XL) 150 mg 24 hr tablet Active Active Problems Problem Noted Date Diagnosed Date Pancreas cyst 08/13/2024 Mixed hyperlipidemia 07/06/2024 Shortness of breath 07/06/2024 Primary osteoarthritis of right knee 03/24/2024 Benign essential HTN 08/19/2023 Overview (07/06/2024): BP stable on amlodipine, losartan Chronic obstructive pulmonary disease 08/19/2023 Overview (07/06/2024): Follows PCP. Has used albuterol in the past. Flonase actually helps him more. 53 pack year smoking hx - quit 10 years ago. gets out of breathe easily. Not very mobile though due to R knee so doesn't get out of breathe often. CKD (chronic kidney disease) stage 2, GFR 60-89 ml/min 08/19/2023 Overview (07/06/2024): No records to confirm Stage 3A. Most recent GFR in 70s [id number]. Patient has increased water intake. Continues on losartan for kidney protection. Hepatic steatosis 08/19/2023 Overview (07/06/2024): Mild hepatic steatosis. MRI/MRCP 05/2022 Follows GI at [place] for pancreatic cyst Hyperlipidemia 08/19/2023 Overview (07/06/2024): stable on Lopid, LDL 95 01/2023. Had trouble with statins Obstructive sleep apnea syndrome 08/19/2023 Overview (07/06/2024): does not use his CPAP Prediabetes 08/19/2023 Overview (07/06/2024): A1c 5.7% 01/2023, never formally dx with DM (A1c never above 6.4%). Has been on Ozempic and metformin in past for weight loss. 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 No longer follows vascular. Continues on plavix, following PCP - checks pulses in LE's at each OV. Knee stiffness 03/14/2015 Encounter for surgical after care following surgery on the circulatory system 02/15/2015 Need for prophylactic antibiotic 12/07/2014 Social History Tobacco Use Types Packs/Day Years Used Date Smoking Tobacco: Former Cigarettes 1.5 40 1 971 - 2010 Smokeless Tobacco: Never Tobacco Cessation:Counseling Given: Not Answered Comments:quit 3 ppd Alcohol Use Standard Drinks/Week Comments Not Currently 0 (1 standard drink = 0.6 oz pure alcohol) quit 12 pack daily AUDIT-C Answer Date Recorded Q1: How often do you have a drink containing alcohol? Never 09/02/2024 Q2: How many drinks containi ng alcohol do you have on a typical day when you are drinking? Patient does not drink Q3: How often do you have si x or more drinks on one occasion? Never 09/02/2024 Personal Safety Answer Date Recorded Have you ever been in or are you currently in a harmful physical or emotional relationship or is someone making you feel afraid or unsafe? 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 Gender Identity Not on file Sexual Orientation Not on file Last Filed Vital Signs Vital Sign Reading Time Taken Comments Blood Pressure 114/68 09/02/2024 12:32 PM CDT Pulse 57 09/02/2024 12:32 PM CDT Temperature 36.2 C (97.2 F) 09/02/2024 11:08 AM CDT Respiratory Rate 17 09/02/2024 12:32 PM CDT Oxygen Saturation 94% 09/02/2024 12:32 PM CDT Inhaled Oxygen Concentration - - Weight 122.5 kg (270 lb) 09/02/2024 11:08 AM CDT Height 182.9 cm (6') 09/02/2024 11:08 AM CDT Body Mass Index 36.62 09/02/2024 11:08 AM CDT Plan of Treatment Scheduled Procedures Name Priority Associated Diagnoses Date/Ti me COLONOSCOPY Screening for colon cancer Medical Devices Implanted Type Area Director Of Strategic Alliances Device Identifier Shelf Expiration Date Model / Serial / Lot Screw Screw Right: Ankle [employer] [id number] Device Closure Angio-Seal Vip [employer]dek-Plus Polyglyd L70 Cm Od6 Fr Odsec.035 In Vascular - [id number] Implanted:Qty: 1 on 02/05/2019 by Armand Fowler Jr., MD at [facility] [employer] [facility] [employer] [id number] / / Procedures Procedure Name Priority Date/Time Associated Diagnosis Comments US ENDOSCOPIC IP Routine 09/02/2024 12:12 PM CDT Pancreas cyst ESOPHAGOGASTRODUODENOSCOPY ULTRASOUND EXAM LIMITED 09/02/2024 11:58 AM CDT Pancreas cyst UPPER EUS 09/02/2024 11:48 AM CDT SCAN - RADIOLOGY/IMAGING 08/05/2024 XR PELVIS 1 OR 2 VIEWS Schedule Routine, Read Routine (OP Routine) 07/07/2024 10:23 AM CDT Acute knee pain, unspecified laterality from Last 3 Months Results * Upper EUS (09/02/2024 11:48 AM CDT) Anatomical Region Laterality Modality Other Narrative Procedure Note Prem Ho MD - 09/02/2024 11:48 AM CDT ENDOSCOPY LAB Patient Name: Demetrius Saenz Procedure Date: 09/02/2024 11:48 AM Admit Type: Outpatient Room: [facility] Date of : 1955 Instrument Name: [id number] Gender: Male Note Status: Finalized Procedure: Upper EUS Indications: Pancreatic cyst on CT scan - known side branch IPMN measuring 32 x 19 mm in 2018. Patient held Plavix x3 days. Providers: Prem Ho M.D. Referring MD: Terese Pritchard MD Medicines: Monitored Anesthesia Care Complications: No immediate complications. Estimated Blood Loss: Estimated blood loss: none. Procedure: Pre-Anesthesia Assessment: - The risks and benefits of the procedure and the sedation options and risks were discussed with the patient. All questions were answered and informed consent was obtained. - Immediately prior to administration ofmedications, the patient was re-assessed for adequacy to receive sedatives. The risks, benefits and alternatives were discussed and informed consent was obtained. TheEndosonoscope was introduced through the mouth, and advanced tothe second part of duodenum The upper EUS wasaccomplished without difficulty. The patient tolerated the procedure well. Findings: ENDOSONOGRAPHIC FINDING: : The esophagus, stomach and duodenum were visualizedendosonographically. There was no sign of significant endosonographic abnormality in the ampulla. There was no sign of significant endosonographic abnormality in the common bile duct. There was no sign of significant endosonographic abnormality in theleft lobe of the liver. No pathologic lymphadenopathy seen. An anechoic lesion suggestive of a cyst was identified in thepancreatic head. It communicates with the pancreatic duct. The lesion [id number] mm by 30 mm in maximal cross-sectional diameter. There was a single compartment without septae. The outer wall of the lesion was notseen. There was no associated mass. There was no internal debris within the fluid-filled cavity. The ventral pancreatic duct was non-dilated. Pancreatic parenchymal abnormalities were noted in the entirepancreas. These consisted of hyperechoic foci, hypoechoic foci andlobularity. Impression: - There was no sign of significant pathology in the ampulla. - There was no sign of significant pathology in the common bile duct. - There was no evidence of significant pathology in the left lobe of the liver. - A cystic lesion was seen in the pancreatic head. Tissue has not been obtained. 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 - Pancreatic parenchymal abnormalities consistingof hyperechoic foci, hypoechoic foci and lobularitywere noted in the entire pancreas. Recommendation: - Observe patient's clinical course. - Return to referring physician as previously scheduled. - MRCP for cyst surveillance in 3 months. Attending Participation: I personally performed the entire procedure. Electronically signed by Prem Ho M.D. Prem Ho M.D. 09/02/2024 12:19:21 PM This document was signed electronically. Number of Addenda: 0 Note Initiated On: 09/02/2024 11:48 AM Scope In: Scope Out: Prem Ho MD ENDOSCOPY PROCEDURES Final Result * SCAN - RADIOLOGY/IMAGING (08/05/2024) Anatomical Region Laterality Modality Other us Provider Scanning Final Result * XR Pelvis 1 or 2 Views (07/07/2024 10:23 AM CDT) Anatomical Region Laterality Modality Body, Pelvis N/A Computed Radiogr aphy 07/07/2024 10:4 7 AM CDT Impressions 07/07/2024 10:47 AM CDT Mild bilateral hip osteoarthritis. Electronically signed by: Oneil Gill M.D. Narrative 07/07/2024 10:47 AM CDT EXAMINATION: XR PELVIS 1 OR 2 VIEWS HISTORY: Hip pain FINDINGS: A single view of the pelvis was performed without prior comparison. There is mild bilateral hip osteoarthritis. There is left higher than right pelvic obliquity. There is no acute fracture of the pelvis. Procedure Note Oneil Gill MD PhD - 07/07/2024 EXAMINATION: XR PELVIS 1 OR 2 VIEWS HISTORY: Hip pain FINDINGS: A single view of the pelvis was performed without prior comparison. There is mild bilateral hip osteoarthritis. There is left higher than right pelvic obliquity. There is no acute fracture of the pelvis. IMPRESSION: Mild bilateral hip osteoarthritis. Electronically signed by: Oneil Gill M.D. Cheng Ramirez MD IMG XR PROCEDURES Final Result from Last [address] [facility] PPO [facility] MEDICARE HMO/PPO [facility] MEDICARE HMO/PPO [id number] [place] [address] MEDICARE HMO/PPO Advance Directives For more information, please contact: [phone] * Full Code (Latest Code Status on File) Date Activated Date Inactivated Comments 09/02/2024 11:03 AM 09/02/2024 4:48 PM * Full Code Date Activated Date Inactivated Comments 11/25/2018 8:32 AM 11/25/2018 2:56 PM Care Teams Lead Engineer Relationship Specialty Start Date End Date Terese Pritchard MD [address] [place] [address] PCP - General Family Medicine 01/05/19 Chasidy Salgado, RN Registered Nurse Gastroenterology 11/23/18
--- OUTSIDE RECORDS SUMMARY | 2024-09-07 13:13 | XMS_ITS | Encounter Summary ---
Author Organization [facility] Address [address] [place] [address] Care Team Providers Care Sales And Operations Trainee Name Role Phone Terese Pritchard MD Primary Care Provider Tanner Bullock MD Unavailable [phone] Gurinder Wilkerson MD Unavailable [phone] Encounter Details Date Type Department Care Team ([facility] Contact Info) Description 11/17/2018 Abstract [facility] at [address] [address] Apryl Zhao MA Social History Tobacco Use Types Packs/Day Years Used Date Smoking Tobacco: Former Cigarettes Q uit: 2012 Alcohol Use Standard Drinks/Week Comments Yes 0 (1 standard drink = 0.6 oz pur e alcohol) occasional Comments Unknown Sex and Gender Information Value Date Recorded Sex Assigned at Choose not to disclose 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 Gender Identity Not on file Sexual Orientation Not on file Occupation Industry Job Start Date Job End Date Not on file Not on file Not on file Not on file documented as of this encounter Plan of Treatment Upcoming Encounters Date Type Department Care Team (Late Contact Info) Description 10/20/2024 12:45 PM CDT Office Visit [facility] [place] [address] Tanner Bullock MD [address] [facility] [address] [address] documented as of this encounter Procedures Procedure Name Priority Date/Time Associated Diagnosis Comments CBC (OUTSIDE LAB) Routine 12/08/2018 BASIC METABOLIC PANEL Routine 12/08/2018 CREATININE Routine 10/26/2018 documented in this encounter Results * BASIC METABOLIC PANEL (12/08/2018) SODIUM S/P/B 135 136 - 145 POTASSIUM S/P/B 3.9 CO2 24 CHLORIDE S/P/B 100 GLUCOSE 113 mg/dL CALCIUM S/P/B 10.3 BUN 27 CREATININE S/P/B 1.2 0.7 - 1.3 EGFR AFR. AMER. 79 EGFR NON-AFR. AMER. 65 <=90 12/08/2018 us Doc [facility] LABORATORY Final Result * CBC (OUTSIDE LAB) (12/08/2018) WBC 6.7 HGB 14.9 HCT 43.6 PLT 277 12/08/2018 us Doc [facility] Abstract LAB-OUTSIDE/ABSTRACTED Final Result * CREATININE (10/26/2018) CREATININE S/P/B 1.3 0.7 - 1.3 EGFR NON-AFR. AMER. 72 <=90 EGFR AFR. AMER. 59 10/26/2018 us Doc [facility] LABORATORY Final Result documented in this encounter Visit Diagnoses Not on filedocumented in this encounter Additional Health Concerns Infection Onset Date Last Indicated Resolved Time Tuberculosis Rule-Out 08/31/2024 08/31/2024 documented as of this encounter Care Teams Sales And Operations Trainee Relationship Specialty Start Date End Date Terese Pritchard MD [address] [place] [address] PCP - General FAMILY PRACTICE 11/12/18 Tanner Bullock MD [address] [facility] [address] [place] [address] Physician INTERVENTIONAL CARDIOLOGY 12/16/23 Gurinder Wilkerson MD [address] [facility] [address] [place] [address] SURGERY 09/02/24 documented as of this encounter
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
[2024-09-07 14:18] LABS: Hematocrit 41.6 % (42.0-52.0); Hemoglobin 13.7 g/dL (14.0-18.0); Immature Granulocyte Percent A 0.7 % (0-0.5); Lymphocytes Absolute Auto 1.05 K/mm3 (0.9-3.2); Mean Corpuscular HGB Conc 32.9 g/dl (32-36); Mean Corpuscular Hemoglobin 29.0 pg (26-34); Mean Corpuscular Volume 87.9 fl (80-100); Nucleated Red Blood Cells Absolute Auto 0.000 K/mm3 (0.0-0.012); Nucleated Red Blood Cells Perc 0.0 % (0.0-0.2); Platelet Count Result 204 k/mm3 (150-375); Red Blood Count 4.73 M/mm3 (4.6-6.20); White Blood Count 5.9 K/mm3 (4.5-10.0)
[2024-09-07 14:24] LABS: Alanine Aminotransferase 17 U/L (6-50); Albumin Level 4.6 g/dL (3.5-5.1); Alkaline Phosphatase 79 U/L (38-126); Amylase 70 U/L (30-110); Anion Gap 9 mmol/L (4-12); Aspartate Amino Transferase 21 U/L (17-59); Bilirubin,Total 0.4 mg/dL (0.2-1.3); Calcium 9.7 mg/dL (8.4-10.2); Carbon Dioxide 26 mmol/L (22-30); Chloride 106 mmol/L (98-107); Glucose 107 mg/dL (65-110); Lipase 221 U/L (23-300); Potassium 4.2 mmol/L (3.4-5.0); Sodium 141 mmol/L (137-145); Total Protein 7.5 g/dL (6.3-8.2)
[2024-09-07 14:29] LABS: Blood Urea Nitrogen 17 mg/dL (9-20); Estimated Glomerular Filt Rate 58
== END 2024-09-07 13:07 | disposition home or self-care (01) ==
PROVIDERS: PCP Family Medicine; Visit Provider Surgery
DX: Z01.818 Encounter for other preprocedural examination (principal); K81.1 Chronic cholecystitis; I10 Essential (primary) hypertension; E78.5 Hyperlipidemia, unspecified; Z87.891 Personal history of nicotine dependence
CPT/HCPCS: 36415; 80053; 82150; 82248; 83690; 85025; 93005

== ENCOUNTER 2024-09-09 01:22 | Day surgery (SDC) | payer OTHER, SELFPAY ==
[2024-09-02 10:05] VITALS: BMI 36.4
--- NOTE | 2024-09-02 10:20 | PC.NURSE ---
Report to the Outpatient Waiting Room, entrance under the green pavilion located off [facility], at time __1100am on date __09/09/24 . Planned Procedure Time: __100pm .? Time changes happen often and if your time is changed the preop area will call you the afternoon before. - You and your visitor will be asked to self-screen and do not enter if you have any COVID symptoms. Please call surgeon if you need to reschedule. - A mask is optional within the hospital at this time. Patients may have clear liquids (water, carbonated beverages, clear teas, apple juice) until 3 hours prior to surgery with a maximum of 20 ounces. - No food from midnight until time of surgery and no smoking, or chewing tobacco (or any form of nicotine). No chewing gum, candy or mints. (10:00am) Take only the following medications with a SIP of water on the morning of surgery: Amlodipine and Bupropion and Hydrocodone if needed DO NOT STOP ANY OF YOUR OTHER PRESCRIPTION MEDICATIONS PRIOR TO SURGERY EXCEPT THE FOLLOWING Per Dr Wilkerson- Hold Meloxicam date to take last dose is 08/31/24 Medications to discontinue per physician HOLD the Plavix [address] Wilkerson, date to take last dose is 09/03/24 Hold MVI, and supplements for 3 days Date of last dose 09/05/24 HOLD the OZEMPIC for 10 days prior per Anesthesia. Date to take last dose_08/28/24. Please no make-up, nail chinese, hairspray, perfume, deodorant, or body powder the day of surgery.? No jewelry (including any body piercings) or valuables the day of surgery, leave them at home.? Please take a shower or bath the night before, or the morning of, surgery with an antibacterial soap.?( GOLD DIAL ) Wear comfortable, loose fitting clothing.? - Jewelry must be removed prior to entering the operating room.? Rings and piercings that are not removed may be cut off. - The hospital will not accept responsibility for valuables.? - Please leave all valuables, including medications, at home the day of surgery. If you are going home after surgery, a licensed operator and truck driver must drive you home.? - NO public transportation without another adult if you receive anesthesia. - We recommend that an adult stay with you for 24 hours following discharge. - We also recommend that you do not drive, make important decision, drink alcoholic beverages, or take any drugs that were not prescribed by your health care provider for at least 24 hours after your discharge time. Follow any additional instructions given to you from your surgeon. Telephone instructions given to ___Patient and asked if any additional questions and then verbalized understanding. Patient advised to call surgeon office or pre surgery nurse liaison [phone] if any additional questions.
[2024-09-09] VITALS (11 sets, daily range): BP systolic 105–132; BP diastolic 57–78; PULSE 56–68; RESP 12–20; TEMP 36.4–36.7; O2SAT 90–99
--- NOTE | ~2024-09-09 | XR_ITS ---
EXAMINATION: XR cholangiogram surg 1st inj DATE: 09/09/2024 13:51 INDICATION: Gallstones TECHNIQUE: 162 fluoroscopic images of the right upper quadrant were obtained during procedure perform ed by Dr. Wilkerson. Radiologist was not present for the imaging or procedure. The amount of fluoroscopy t gonzales used during this procedure was 0.6 minutes. Total DAP was 0.71 mGym^2. COMPARISON: None. FINDINGS: Cannulation of the cystic duct demonstrates filling of a normal appearing common bile duct which tape rs smoothly distally with no intraluminal filling defects or stricture. Contrast extends into the du odenum and central intrahepatic biliary tree which also appears normal. IMPRESSION: 1. Normal internal echocardiogram with no intraluminal filling defects or stones within the common bi le duct or opacified portions of the central intrahepatic biliary tree. Reviewed, dictated and finalized at location A. IMPRESSION: 1. Normal internal echocardiogram with no intraluminal filling defects or stone s within the common bile duct or opacified portions of the central intrahepatic biliary tree.
--- OUTSIDE RECORDS SUMMARY | 2024-09-09 01:25 | XMS_ITS | Encounter Summary ---
Author Organization [facility] Address [address] [place] [address] Care Team Providers Care Broadcast Field Supervisor Name Role Phone Terese Pritchard MD Primary Care Provider Tanner Bullock MD Unavailable [phone] Gurinder Wilkerson MD Unavailable [phone] Encounter Details Date Type Department Care Team ([facility] Contact Info) Description 11/17/2018 Abstract [facility] at [address] [address] Apryl Zhao MA Social History Tobacco Use Types Packs/Day Years Used Date Smoking Tobacco: Former Cigarettes Q uit: 2012 Alcohol Use Standard Drinks/Week Comments Yes 0 (1 standard drink = 0.6 oz pur e alcohol) occasional Comments Unknown Sex and Gender Information Value Date Recorded Sex Assigned at Choose not to disclose 01/2025 10:02 AM AMBULANCE OFFICER Legal Sex Male 10:05 PM AMBULANCE OFFICER Gender Identity Not on file Sexual Orientation Not on file Occupation Industry Job Start Date Job End Date Not on file Not on file Not on file Not on file documented as of this encounter Plan of Treatment Upcoming Encounters Date Type Department Care Team (Late Contact Info) Description 10/20/2024 12:45 PM CDT Office Visit [facility] [place] [address] Tanner Bullock MD [address] [facility] [address] [address] documented as of this encounter Procedures Procedure [...] documented as of this encounter Care Teams Broadcast Field Supervisor Relationship Specialty Start Date End Date Terese Pritchard MD [address] [place] [address] PCP - General FAMILY PRACTICE 11/12/18 Tanner Bullock MD [address] [facility] [address] [place] [address] Physician INTERVENTIONAL CARDIOLOGY 12/16/23 Gurinder Wilkerson MD [address] [facility] [address] [place] [address] SURGERY 09/02/24 documented as of this encounter
--- OUTSIDE RECORDS SUMMARY | 2024-09-09 01:25 | XMS_ITS | Clinical Summary ---
Author Organization [facility] Address [address] [place] [address] Care Team Providers Care Motor Racer Name Role Phone Chasidy Salgado RN Unavailable [...] Stage 3A. Most recent GFR in 70s 0045-1420. Patient has increased water intake. Continues on losartan for kidney protection. Hepatic steatosis 08/19/2023 Overview (07/06/2024): Mild hepatic steatosis. MRI/MRCP 05/2022 Follows GI at [place] for pancreatic cyst Hyperlipidemia 08/19/2023 Overview (07/06/2024): stable on Lopid, LDL 95 01/2023. Had trouble with statins Obstructive sleep apnea syndrome 08/19/2023 Overview (07/06/2024): does not use his CPAP Prediabetes 08/19/2023 Overview (07/06/2024): A1c 5.7% 01/2023, never formally dx with DM (A1c never above 6.4%). Has been on Ozempic and metformin in past for weight loss. 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- s/p vascular surgery- recanalization with percutaneous angioplasty and atherectomy 01/2019 (SENIOR OFFICER of the distal RIGHT DISTAL SFA into [...] CDT - 5 12:30 PM CDT Surgery [facility] [address] [place] [address] [phone] Prem Ho MD ESOPHAGOGASTRODUODENOSCOPY ULTRASOUND EXAM LIMITED 5 11:58 AM CDT Anesthesia Event [facility] [address] [place] [address] [phone] Merari Armas MD Winfrey, Tonya M., HAT BLOCKING MACHINE OPERATOR 5 10:54 AM CDT - 5 12:48 PM CDT Hospital Encounter [facility] [address] [place] [address] [phone] Prem Ho MD Pancreas cyst Discharge Disposition: Discharge to home or self care 5 Telephone [facility] Gastroenterology [address] [place] [address] Medical Office Building [address], [address] [place] [phone] Starla Chandler RN 5 Telephone [facility] Gastroenterology [address] [place] [address] Medical Office Building [address], [address] [place] [address] Starla Chandler RN 5 Telephone [facility] Gastroenterology [address] [place] [address] Medical Office Building [address], [address] [place] [address] Starla Chandler RN 5 Orders Only [facility] Gastroenterology [address] [facility] Office Building [address], [address] [place] [address] Odessa Stacy RN Pancreatic cyst (Primary Dx); Hepatic steatosis 5 Orders Only [facility] Scanning, Provider 5 10:30 AM CDT Office Visit [facility] Orthopaedic Surgery [address] [facility] Office [facility] [address] [place] [address] Cheng Ramirez MD Unilateral primary osteoarthritis, right knee (Primary Dx); Acute knee pain, unspecified laterality 5 10:00 AM CDT - 5 11:59 PM CDT Hospital Encounter [facility] [address] [place] [address] [address] [place] [phone] Acute knee pain, unspecified laterality Discharge Disposition: Discharge to home or self care 5 Telephone [facility] Orthopaedic Surgery [address] [place] [address] Office [facility] [address] [place] [phone] Ezio Villagran MD from Last 3 Months [...] on file 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 Gender Identity Not on file Sexual [...] 08/05/2024, 07/08/2022 Medical Devices Implanted Type Area Boiler Testing Technician Device Identifier Shelf Expiration Date Model / Serial / Lot Screw Screw Right: Ankle [email or web address] [id number] Device Closure Angio-Seal Vip [employer]k-Plus Polyglyd L70 Cm Od6 Fr Odsec.035 In Vascular - [id number] Implanted:Qty: 1 on 02/05/2019 by Armand Fowler Jr., MD at [facility] [email or web address] [id number] / / Procedures Procedure Name Priority Date/Time [...] 09/02/2024 11:48 AM Admit Type: Outpatient Room: [facility] Date of : 1955 Instrument Name: [id number] [...] communicates with the pancreatic duct. The lesion xssjubxs91 mm by 30 mm in maximal cross-sectional [...] Final Result from Last 3 Months Insurance [facility] PPO [facility] MEDICARE HMO/PPO [employer] MEDICARE HMO/PPO [facility] MEDICARE HMO/PPO Advance Directives For more information, please contact: [phone] * Full Code (Latest Code Status on File) Date Activated Date Inactivated Comments 09/02/2024 11:03 AM 09/02/2024 4:48 PM * Full Code Date Activated Date Inactivated Comments 11/25/2018 8:32 AM 11/25/2018 2:56 PM Care Teams Motor Racer Relationship Specialty Start Date End Date Terese Pritchard MD [address] [place] [address] PCP - General Family Medicine 01/05/19 Chasidy Salgado, RN Registered Nurse Gastroenterology 11/23/18
--- OUTSIDE RECORDS SUMMARY | 2024-09-09 01:25 | XMS_ITS | Encounter Summary ---
Author Organization [facility] Address [address] [place] [address] Care Team Providers Care Cnp Name Role Phone Terese Pritchard MD Primary Care Provider Tanner Bullock MD Unavailable [phone] Gurinder Wilkerson MD Unavailable [phone] Encounter Details Date Type Department Care Team (Late st Contact Info) Description 12/25/2021 Medication Management [facility] Medical [facility] General Surgery - [address] [place] [phone] Terese Pritchard MD [address] [place] [id number] Social History Tobacco Use Types Packs/Day Years [...] Choose not to disclose 01/2025 10:02 AM FIRE ADJUSTER Legal Sex Male 10:05 PM FIRE ADJUSTER Gender Identity Not on file Sexual Orientation [...] Description 10/20/2024 12:45 PM CDT Office Visit [facility] [address] [place] [address] Tanner Bullock MD [address], [facility] [address] [place] [address] documented as of this encounter Visit Diagnoses Not on filedocumented in this encounter Additional Health Concerns Infection Onset Date Last Indicated Resolved Time Tuberculosis Rule-Out 08/31/2024 08/31/2024 documented as of this encounter Care Teams Cnp Relationship Specialty Start Date End Date Terese Pritchard MD [address] [place] [address] PCP - General FAMILY PRACTICE 11/12/18 Tanner Bullock MD [address], [facility] [address] [place] [address] Physician INTERVENTIONAL CARDIOLOGY 12/16/23 Gurinder Wilkerson MD [address] [facility] [address] [place] [address] SURGERY 09/02/24 documented as of this encounter
--- OUTSIDE RECORDS SUMMARY | 2024-09-09 01:25 | XMS_ITS | Encounter Summary ---
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
--- OUTSIDE RECORDS SUMMARY | 2024-09-09 01:26 | XMS_ITS | Clinical Summary ---
Author Organization [facility] Address [address] [place] [address] Care Team Providers Care Warp Trucker Name Role Phone Terese Victor MD Primary Care Provider Tanner Bullock MD Unavailable [phone] Gurinder Guevara MD Unavailable [phone] Allergies Active Allergy Reactions Criticality Noted [...] (12/31/2021): Added automatically from request for surgery [id number] PVD (peripheral vascular disease) 11/13/2018 Shortness of breath Mixed hyperlipidemia NAIF on CPAP Overview (12/17/2023): does not use his CPAP Encounters Date Type Department Care Team Description 09/06/2024 8:51 AM CDT - 09/06/2024 11:59 PM CDT Hospital Encounter [address] [place] [address] Gurinder Guevara MD Arrived Discharge Disposition: Home or Self Care (Routine Discharge) 09/06/2024 Travel 09/02/2024 Telephone [facility] [address] [place] [address] Tanner Bullock MD Surgical Clearance 08/31/2024 12:23 PM CDT - 08/31/2024 11:59 PM CDT Hospital Encounter [facility] [address] Brenda Spain MD Discharge Disposition: Home or Self Care (Routine Discharge) 08/31/2024 12:23 PM CDT - 08/31/2024 11:59 PM CDT Hospital Encounter [facility] [place] [place] [address] Brenda Spain MD Discharge Disposition: Home or Self Care (Routine Discharge) 08/31/2024 Travel 08/31/2024 [facility] [address] [place] [address] Tanner Bullock MD Surgical Clearance 08/24/2024 Orders Only [facility] [place] [address] Megan Dawkins MD 08/24/2024 Hospital Orders Only [facility] [address] Megan Dawkins MD 08/12/2024 7:49 AM CDT - 08/12/2024 11:59 PM CDT Hospital Encounter [facility] Nuclear Medicine [address] [address] Terese Victor MD Discharge Disposition: Home or Self Care (Routine Discharge) 2024 12:19 PM CDT - 2024 11:59 PM CDT Hospital Encounter [facility] CT [address] [address] Terese Victor MD Discharge Disposition: Home or Self Care (Routine Discharge) 2024 Travel 08/05/2024 10:58 AM CDT - 08/05/2024 11:59 PM CDT Hospital Encounter [facility] CT [address] [address] Terese Victor MD Discharge Disposition: Home or Self Care (Routine Discharge) 08/05/2024 9:00 AM CDT - 08/05/2024 10:57 AM CDT Hospital Encounter [facility] Laboratory [address] [place] [address] Terese Victor MD Discharge Disposition: Home or Self Care (Routine Discharge) 08/05/2024 Orders Only [facility] Laboratory [address] [place] [address] Terese Victor MD 08/05/2024 Travel 06/15/2024 [facility]phone [facility] [address] [place] [address] Tanner Bullock MD Medication (Refil/fill) from Last [...] Choose not to disclose 01/2025 10:02 AM HEALTH CLUB MANAGER Legal Sex Male 10:05 PM HEALTH CLUB MANAGER Gender Identity Not on file Sexual Orientation Not on file Occupation Industry Job Start Date Job End Date Not on file Not on file Not on file Not on file Last Filed Vital Signs Vital Sign Reading Time Taken Comments Blood Pressure 136/84 04/19/2024 2:09 PM HEALTH CLUB MANAGER Pulse 64 04/19/2024 2:09 PM HEALTH CLUB MANAGER Temperature 36.3 C (97.3 F) 12/04/2022 8:08 AM CDT Respiratory Rate 18 04/19/2024 2:09 PM HEALTH CLUB MANAGER Oxygen Saturation 98% 04/19/2024 2:09 PM HEALTH CLUB MANAGER Inhaled Oxygen Concentration - - Weight 131.7 kg (290 lb 6.4 oz) 04/19/2024 2:09 PM HEALTH CLUB MANAGER Height 182.2 cm (5' 11.75) 04/19/2024 2:[address] Body Mass Index 39.66 04/19/2024 2:09 PM HEALTH CLUB MANAGER Plan of Treatment Upcoming Encounters Date Type Department Care Team (Late st Contact Info) Description 10/20/2024 12:45 PM CDT Office Visit [facility] [place] [address] Tanner Bullock MD [address] [address] Health Maintenance Due Date Last Done Comments [...] Medicare Wellness Visit 08/10/2020 COVID-19 Vaccine (4 - 2023-2 5 season) 2023 12/18/2020, 05/27/2020, 04/28/2020 PHQ-2 (Physician [place]) 03/03/2024 Meningococcal B Vaccine Aged Out No l onger eligible based on patient's age to complete this topic Meningococcal Vaccine Aged Out No pamela carolina eligible based on patient's age to complete this topic RSV Immunizations Under 20 Months Aged Out No longer eligible b ased on patient's age to complete this topic Medical Devices Implanted Type Area Alarm Field Technician Device Identifier Shelf Expiration Date Model / Serial / Lot Iol Tecrachel Robertsic [id number] - [id number] Implanted:Qty: 1 on 12/04/2022 by Madelaine Whitley MD at [facility] Lens Right: Eye [employer] [id number] 12/30/2024 [id number] / [id number] / NONE Procedures Procedure Name Priority Date/Time [...] 1:39 PM Narrative 09/06/2024 1:46 PM [address]T [address] [place] [address] IMAGING STUDIES: US ABD LIMITED DATE: 09/06/2024 [...] Procedure Note Enoch Ratliff MD - 09/06/[address] [place] [address] IMAGING STUDIES: US ABD LIMITED DATE: 09/06/2024 [...] 2:36 PM Narrative 08/31/2024 2:40 PM CDT [address] [address] Procedure: IR ultrasound-guided left neck lesion needle [...] Procedure Note Megan Dawkins MD - 08/31/[address] [address] Procedure: IR ultrasound-guided left neck lesion needle [...] SPEC DESCRIPTION NECK 08/31/2024 3:20 PM CDT [facility] SPECIAL REQUESTS NO SPECIAL REQUEST 08/31/2024 3:20 PM CDT [facility] GRAM STAIN RESULT NO WHITE BLOOD CELLS SEEN 08/31/2024 10:27 PM CDT [facility] GRAM STAIN RESULT NO ORGANISMS SEEN 08/31/2024 10:27 PM CDT [facility] CULTURE RESULT NO GROWTH 3 DAYS 09/03/2024 8:06 AM CDT [facility] SPECIMEN FROM HEAD AND NECK STRUCTURE / Unknown 08/31/2024 2:10 PM CDT 08/31/2024 3:18 PM CDT us Megan Dawkins MD MICROBIOLOGY - GENERAL ORDERABL ES Final Result [facility] [address] [place] [address], [place] [phone] * CULTURE ANAEROBIC (08/31/2024 2:10 PM CDT) SPEC DESCRIPTION ASPIRATE 08/31/2024 2:11 PM CDT [facility] SPECIAL REQUESTS NO SPECIAL REQUEST 08/31/2024 2:11 PM CDT [facility] CULTURE RESULT NO ANAEROBES ISOLATED AT 5 DAYS. 09/05/2024 7:00 AM CDT [facility] SPECIMEN OBTAINED BY ASPIRATION / Unknown 08/31/2024 2:10 PM CDT 08/31/2024 2:52 PM CDT us Megan Dawkins MD MICROBIOLOGY - GENERAL ORDERABL ES Final Result Performing Organization Address [facility]/ZIP Co de Phone Number [facility] [address] [place] [address], [place] [phone] * (ABNORMAL) PLATELET COUNT, AUTO (08/31/2024 12:30 PM CDT) PLT 198 130 - 400 x10'3/uL 08/31/2024 12:40 PM CDT [facility] MPV 9.0(L) 9.3 - 12.2 FL 08/31/2024 12:40 PM CDT [facility] 08/31/2024 12:3 0 PM CDT us Megan Dawkins MD LABORATORY Final Result Performing Organization Address [facility]/ZIP Co de Phone Number [facility] [address] [place] [address], [place] [phone] * (ABNORMAL) PTT, PARTIAL THROMBOPLASTIN TIME (08/31/2024 12:30 PM CDT) PTT 36.8(H) 25.1 - 36.5 SEC 08/31/2024 1:35 PM CDT [facility] 08/31/2024 12:3 0 PM CDT us Megan Dawkins MD LABORATORY Final Result Performing Organization Address [facility]/ZIP Co de Phone Number [facility] [address] [place] [address], [place] [phone] * PROTIME/INR, VENOUS (08/31/2024 12:30 PM CDT) PROTIME 11.9 10.2 - 12.9 SEC 08/31/2024 1:35 PM CDT [facility] INR 1.0 08/31/2024 1:35 PM CDT [facility] Comment: Recommended INR Therapeutic Goals: 2.0-3.0 Routine Therapy 2.5-3.5 Mechanical Prosthetic Valves (High Risk) 08/31/2024 12:3 0 PM CDT us Megan Dawkins MD LABORATORY Final Result [facility] [address] [place] [address], * CYTOLOGY GENERIC (08/31/2024 12:00 AM CDT) CYTOLOGY OTHER [facility] Department of Laboratory Medicine [address] [place] [phone] , extension [phone] Pathology Report Non-gynecologic Cytology Report Name: DEMETRIUS SAENZ Specimen #: [id number] Age: 6 1955 (Age: 69) Location: [facility] Sex: M Procedure Date: 08/31/2024 Hospital #: [id number] Date Received: 09/01/2024 Date Reported: 09/03/2024 Provider: [...] interpretation, and sign out were performed at [facility], [address] [facility] [address]. Electronically Signed Out BRIAN SANTO MD [facility] 08/31/2024 09/01/2024 11:52 AM CDT Comment:CYST, RIGHT SUBMANDI BULAR, ASPIRATION us Brenda Spain MD PATHOLOGY/CYTOLOGY ORDERABLES F inal Result [facility] [address] [place] [address], [place] [phone] * NM HEPATOBILIARY SCAN W/GB EJECTION FRACTION [...] 11:16 AM Narrative 08/12/2024 11:20 AM CDT [address] [place] [address] IMAGING STUDIES: NM HEPATOBILIARY SCAN W/GB EJECTION [...] Procedure Note Enoch Ratliff MD - 08/12/[address] [place] [address] IMAGING STUDIES: NM HEPATOBILIARY SCAN W/GB EJECTION [...] 1:37 PM Narrative 2024 1:46 PM CDT [address] [place] [address] Examination: CT SOFT TISSUE NECK W CON [...] Procedure Note Pierre Montes MD - [address] [place] [address] Examination: CT SOFT TISSUE NECK W CON [...] By: Pierre Montes MD, 2024 1:37 PM us Terese Victor MD CT Final Result * [...] without evidence of stones Ordered By: TERESE VICOTR Interpreted By: Philippe Donahue MD, 08/05/2024 11:56 AM Narrative 08/05/2024 11:59 AM CDT [address] [place] [address] CT ABDOMEN AND PELVIS WITH CONTRAST Exam [...] Procedure Note Philippe Donahue MD - 08/05/[address] [place] [address] CT ABDOMEN AND PELVIS WITH CONTRAST Exam [...] By: Philippe Donahue MD, 08/05/2024 11:56 AM us Terese Victor MD CT Final Result * US SOFT TISS HEAD OR NECK (08/05/2024 11:34 AM CDT) Anatomical Region Laterality Modality Head, Neck Computed Tomogra phy 08/05/2024 12:0 0 PM CDT Impressions 08/05/2024 12:01 PM CDT IMPRESSION: 1.Large subcutaneous cyst Ordered By: TERESE VICTOR Interpreted By: Philippe Donahue MD, 08/05/2024 12:00 PM Narrative 08/05/2024 12:01 PM CDT [address] [place] [address] LIMITED ULTRASOUND OF THE LEFT NECK NEAR [...] Procedure Note Philippe Donahue MD - 08/05/[address] [place] [address] LIMITED ULTRASOUND OF THE LEFT NECK NEAR [...] - 99 MG/DL 08/05/2024 9:34 AM CDT [facility] BUN 18 7 - 18 MG/DL 08/05/2024 9:34 AM CDT [facility] CREATININE S/P/B 1.16 0.50 - 1.20 MG/DL 08/05/2024 9:34 AM CDT [facility] SODIUM S/P/B 136 136 - 145 MMOL/L 08/05/2024 9:34 AM CDT [facility] POTASSIUM S/P/B 4.2 3.5 - 5.1 MMOL/L 08/05/2024 9:34 AM CDT [facility] CHLORIDE S/P/B 102 100 - 108 MMOL/L 08/05/2024 9:34 AM CDT [facility] CO2 27.7 21.0 - 32.0 MMOL/L 08/05/2024 9:34 AM CDT [facility] CALCIUM S/P/B 9.5 8.5 - 10.1 MG/DL 08/05/2024 9:34 AM CDT [facility] BILIRUBIN TOTAL S/P/B 0.7 0.2 - 1.2 MG/DL 08/05/2024 9:34 AM CDT [facility] Comment: THIS ASSAY IS NOT RECOMMENDED FOR PATIENTS UNDERGOING TREATMENT WITH ELTROMBOPAG DUE TO THE POTENTIAL FOR FALSELY ELEVATED RESULTS. TOTAL PROTEIN S/P/B 7.9 6.4 - 8.2 G/DL 08/05/2024 9:34 AM CDT [facility] ALBUMIN S/P/B 4.3 3.4 - 5.0 G/DL 08/05/2024 9:34 AM CDT [facility] AST 27 15 - 37 U/L 08/05/2024 9:34 AM CDT [facility] ALT 39 16 - 60 U/L 08/05/2024 9:34 AM CDT [facility] ALKALINE PHOSPHATASE S/P/B 161(H) 50 - 136 U/L 08/05/2024 9:34 AM CDT [facility] ANION GAP 6.3 5.0 - 15.0 MMOL/L 08/05/2024 9:34 AM CDT [facility] BUN CREATININE RATIO 15.5 6 - 26 08/05/2024 9:34 AM CDT [facility] A/G RATIO 1.2 1.0 - 2.5 RATIO 08/05/2024 9:34 AM CDT [facility] GFR ESTIMATE 69(L) >90 ML/MIN/1.7 3 M2 08/05/2024 9:34 AM CDT [facility] Comment: NOTE: eGFR is not calculated for patients <18 years of age. This is an estimated GFR calculation using the new CKD EPI creatinine equation without race and so does not require a correction factor for race. This estimated GFR should not be used for calculating drug doses. 08/05/2024 9:02 AM CDT us Terese Victor MD LABORATORY Final Result [facility] [address] [place] [address], * (ABNORMAL) CBC W/DIFF AUTOMATED (08/05/2024 9:02 AM CDT) WBC 6.09 4.50 - 11.00 x10'3/uL 08/05/2024 9:10 AM CDT [facility] RBC 5.05 4.50 - 5.90 x10'6/uL 08/05/2024 9:10 AM CDT [facility] HGB 14.6 14.0 - 18.0 G/DL 08/05/2024 9:10 AM CDT [facility] HCT 43.0 43.0 - 54.0 % 08/05/2024 9:10 AM CDT [facility] MCV 85.1 80.0 - 100.0 FL 08/05/2024 9:10 AM CDT [facility] MCH 28.9 26.0 - 34.0 PG 08/05/2024 9:10 AM CDT [facility] MCHC 34.0 31.0 - 37.0 G/DL 08/05/2024 9:10 AM CDT [facility] RDW 13.4 11.6 - 14.8 % 08/05/2024 9:10 AM CDT [facility] PLT 232 130 - 400 x10'3/uL 08/05/2024 9:10 AM CDT [facility] MPV 9.1 7.0 - 12.0 FL 08/05/2024 9:10 AM CDT [facility] CBC COMMENT AUTOMATED RBC MORPHOLOGY AND PLATELET EVALUATION NORMAL 08/05/2024 9:10 AM CDT [facility] NEUTROPHILS % 65.1 40.0 - 74.0 % 08/05/2024 9:10 AM CDT [facility] LYMPHOCYTES % 20.9 14.0 - 46.0 % 08/05/2024 9:10 AM CDT [facility] MONOCYTES % 8.2 4.0 - 13.0 % 08/05/2024 9:10 AM CDT [facility] EOSINOPHILS 4.3 0.0 - 7.0 % 08/05/2024 9:10 AM CDT [facility] BASOPHILS 1.0 0.0 - 3.0 % 08/05/2024 9:10 AM CDT [facility] IMMATURE GRANS % 0.5(H) 0.0 - 0.43 % 08/05/2024 9:10 AM CDT [facility] NRBC % 0.0 % 08/05/2024 9:10 AM CDT [facility] ABS. NEUTROPHILS TOTAL 3.97 1.69 - 7.81 x10'3/uL 08/05/2024 9:10 AM CDT [facility] ABS. LYMPHOCYTES 1.27 0.21 - 5.42 x10'3/uL 08/05/2024 9:10 AM CDT [facility] ABS. MONOCYTES 0.50 0.04 - 1.37 x10'3/uL 08/05/2024 9:10 AM CDT [facility] ABS. EOSINOPHILS 0.26 0.00 - 0.68 x10'3/uL 08/05/2024 9:10 AM CDT [facility] ABS. BASOPHILS 0.06 0.00 - 0.08 x10'3/uL 08/05/2024 9:10 AM CDT [facility] ABS. IMMATURE GRANULOCYTES 0.03 0.00 - 0.06 x10'3/uL 08/05/2024 9:10 AM CDT [facility] ABS. NUCLEATED RBC'S 0.00 0.00 - 0.01 x10'3/uL 08/05/2024 9:10 AM CDT [facility] 08/05/2024 9:02 AM CDT us Terese Victor MD LABORATORY Final Result [facility] [address] [place] [address], from Last 3 Months Additional Health Concerns Infection Onset Date Last Indicated Tuberculosis Rule-Out 08/31/2024 08/31/2024 Insurance [employer] Advance Directives * Full Code (Latest Code Status on File) Date Activated Date Inactivated Comments 12/04/2022 9:48 AM 12/04/2022 12:22 PM Care Teams Warp Trucker Relationship Specialty Start Date End Date Terese Victor MD [address] [place] [address] PCP - General FAMILY PRACTICE 11/12/18 Tanner Bullock MD [address] [facility] [address] [place] [address] Physician INTERVENTIONAL CARDIOLOGY 12/16/23 Gurinder Guevara MD [address] [facility] [address] [place], [place] [address] SURGERY 09/02/24
--- OUTSIDE RECORDS SUMMARY | 2024-09-09 01:26 | XMS_ITS | Referral Summary ---
Author Organization [facility] Address [address] [place] [address] Care Team Providers Care Aluminum Can Collector Name Role Phone Chasidy Salgado RN [facility] Terese Ferrer MD Primary Care Provider Encounters Date Type Department Care Team Description 5 11:58 AM CDT Anesthesia Event [facility] [address] [place] [phone] Merari Armas MD Winfrey, Tonya M., ABDULLAHI 5 12:00 PM CDT - 5 12:30 PM CDT Surgery [facility] [address] [place] [address] [phone] Prem Ho MD ESOPHAGOGASTRODUODENOSCOPY ULTRASOUND EXAM LIMITED 5 10:54 AM CDT - 5 12:48 PM CDT Hospital Encounter [facility] [address] [place] [address] [phone] Prem Ho MD Pancreas cyst Discharge Disposition: Discharge to home or self care [address] [facility] Gastroenterology [address] [place] [address] Office [address] [place] [phone] Starla Chandler RN [address] [facility] Gastroenterology [address] [place] [address] Medical Office Building [address], [address] [place] [address] Starla Chandler RN [address] [facility] Gastroenterology [address] [place] [address] Office Building [address], [address] [place] [address] Starla Chandler RN [address] [facility]enter[facility] [address] [place] [address] Office [address] [place] [phone] Odessa Stacy RN Pancreatic cyst (Primary Dx); Hepatic steatosis [address] [facility] GASTROENTEROLOGY Scanning, Provider 5 10:00 AM CDT - 5 11:59 PM CDT Hospital Encounter [facility] [address] [place] [address] [address] [place] [address] Acute knee pain, unspecified laterality Discharge Disposition: Discharge to home or self care 5 10:30 AM CDT Office Visit [facility] Orthopaedic Surgery [address] [place] [address] Office [facility] [address] [place] [phone] Cheng Ramirez MD Unilateral primary osteoarthritis, right knee (Primary Dx); Acute knee pain, unspecified laterality [address] [facility] Orthopaedic Surgery [address] [place] [address] Office Building [address] [place] [phone] Ezio Villagran MD from Last 3 Months [...] Stage 3A. Most recent GFR in 70s [id number]. Patient has increased water intake. Continues on losartan for kidney protection. Hepatic steatosis 08/19/2023 Overview (07/06/2024): Mild hepatic steatosis. MRI/MRCP 05/2022 Follows GI at [place] for pancreatic cyst Hyperlipidemia 08/19/2023 Overview (07/06/2024): stable on Lopid, LDL 95 01/2023. Had trouble with statins Obstructive sleep apnea syndrome 08/19/2023 Overview (07/06/2024): does not use his CPAP Prediabetes 08/19/2023 Overview (07/06/2024): A1c 5.7% 01/2023, never formally dx with DM (A1c never above 6.4%). Has been on Ozempic and metformin in past for weight loss. 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 Gender Identity Not on file Sexual Orientation [...] colon cancer Medical Devices Implanted Type Area Global Logistics Manager Device Identifier Shelf Expiration Date Model / Serial / Lot Screw Screw Right: Ankle [employer] [id number] Device Closure Angio-Seal Vip Bondek-Plus Polyglyd L70 Cm Od6 Fr [id number] In Vascular - [id number] Implanted:Qty: 1 on 02/05/2019 by Armand Fowler Jr., MD at [facility] [employer] [facility] [employer] [id number] / / Procedures Procedure Name Priority Date/Time [...] 09/02/2024 11:48 AM Admit Type: Outpatient Room: [facility] Date of : 1955 Instrument Name: [...] communicates with the pancreatic duct. The lesion mm by 30 mm in maximal cross-sectional [...] Final Result from Last 3 Months Insurance [facility] PPO [facility] MEDICARE HMO/PPO [facility] MEDICARE HMO/PPO [id number] [place] [address] MEDICARE HMO/PPO Advance Directives For more information, please contact: [phone] * Full Code (Latest Code Status on File) Date Activated Date Inactivated Comments 09/02/2024 11:03 AM 09/02/2024 4:48 PM * Full Code Date Activated Date Inactivated Comments 11/25/2018 8:32 AM 11/25/2018 2:56 PM Care Teams Aluminum Can Collector Relationship Specialty Start Date End Date Terese Pritchard MD [address] [place] [address] PCP - General Family Medicine 01/05/19 Chasidy Salgado, RN Registered Nurse Gastroenterology 11/23/18
[2024-09-09] MEDS: LACTATED RINGERS 1,000 ML 30 ML IV CONT ×2 (10:30→14:25)
--- NOTE | 2024-09-09 10:39 | P.PNAN_ITS ---
Anes - Initial Pre Proc Eval Procedure: Operation Date: 09/09/24 12:00 Proposed Procedures p Laparoscopic Cholecystectomy with Intraoperative Cholangiogram - Gurinder Wilkerson MD Date/Time: 09/09/24 10:39 Surgeon: Gurinder Wilkerson MD Pre Op Diagnosis: chronic cholecystitis Patient Data Age: 69 Gender: M Height: 1.83 m Weight: 122 kg Allergies Allergy/AdvReac Type Severity Reaction Status Date / Time morphine AdvReac Intermediate hives Verified 09/09/24 10:15 rosuvastatin (From Crestor) AdvReac Intermediate Myalgias Verified 09/09/24 10:15 Home Medications ?Medication ?Instructions ?Recorded ?Confirmed ?Type alirocumab 75 mg/mL subcutaneous 75 mg subcut Q14D 08/26/24 09/09/24 History pen injector (Praluent Pen) amlodipine 5 mg tablet 5 mg PO DAILY 08/26/24 09/09/24 History bupropion HCl 150 mg 24 hr tablet, 150 mg PO QAM 08/26/24 09/09/24 History extended release (Wellbutrin XL) bupropion HCl 300 mg 24 hr tablet, 300 mg PO QAM 08/26/24 09/09/24 History extended release clopidogrel 75 mg tablet 75 mg PO DAILY 08/26/24 09/09/24 History docusate sodium 100 mg capsule 100 mg PO BID 08/26/24 09/09/24 History furosemide 20 mg tablet (Lasix) 20 mg PO QAM 08/26/24 09/09/24 History gemfibrozil 600 mg tablet 600 mg PO BID 08/26/24 09/09/24 History hydrocodone 5 mg-acetaminophen 325 1 tablet PO Q6H PRN pain 08/26/24 09/09/24 History mg tablet losartan 50 mg tablet 50 mg PO .BID 08/26/24 09/09/24 History meloxicam 15 mg tablet 15 mg PO DAILY 08/26/24 09/09/24 History omega 6-apc-uzm-fish oil 1,200 mg 1 cap PO .BID 08/26/24 09/09/24 History (144 mg-216 mg) capsule (Fish Oil) potassium bicarbonate and chloride 10 ea PO DAILY 08/26/24 09/09/24 History 25 mEq effervescent tablet semaglutide 2 mg/dose (8 mg/3 mL) 2 mg subcut WEEKLY 08/26/24 09/09/24 History subcutaneous pen injector (Ozempic) Patient hx anesthesia problems: none Family hx anesthesia problems: none Results Review: All pre-operative results and documents have been reviewed as part of the pre- operative evaluation. [facility] Past Medical History Medical History (Updated 09/09/24 @ 10:39 by Akash Laruent MD) NAIF (obstructive sleep apnea) Obesity Gallbladder disorder COPD (chronic obstructive pulmonary disease) Arthritis Surgical History Surgical History History of back surgery 2023 Family History Family History Father Cancer Mother Cancer Thyroid disorder Social History Social History Smoking packs per day: 1.5 Smoking cigarettes per day: 30.0 Years smoked: 43 Smoking pack-years: 64.50 Smoking status: Former smoker Tobacco type: cigarettes Smoking end date: 03/03/14 Alcohol intake: never Substance use: former Substance use type: marijuana Other substance usage details: Not in years Do You Feel Safe in your Home?: Yes Lack of Transportation: No Lack of Food: Never True Current Housing: I Have Housing Concerned About Future Housing: No Difficulty Paying Gas/Electric Bills: No Difficulty Paying for Meds: No Currently Unemployed: No Education: Associate Degree Difficulty w/ Childcare or Family Care: No Living arrangements: with family Occupation/Education: retired Spiritual care concerns: No Agree to blood products: Yes Anes - Eval Final PreProcedure Day of Procedure 09/09/24 10:39 Patient weight: obese Heart: regular rate and rhythm Lungs: decreased breath sounds Airway: Mallampati scale class III Neurological: alert and oriented Last oral intake: >/= 8 hours ASA classification: IV Emergent: no Anesthetic plan: proceed Anesthesia type and monitoring: general ETT and standard monitoring Results Review: All pre-operative results and documents have been reviewed as part of the pre- operative evaluation. Informed Consent: The patient's anesthetic plan and its attendant risks and benefits were discussed with the patient/family/POA. Questions were solicited and answers provided to the satisfaction of the patient/family/POA.
[2024-09-09] MEDS: KETOROLAC 15 MG/ML VIAL (*BKC) IV PUSH (11:07)
[2024-09-09] MEDS: ACETAMINOPHEN 500 MG TABLET 1000 MG PO (11:07)
--- NOTE | 2024-09-09 12:04 | WPDHPUPDATE1 ---
History and Physical Update Update Date/Time: 09/09/24 12:04 Patient's ultrasound showed multiple gallbladder polyps, rather than stones. He also had a dilated common bile duct at 1.1cm. LFT's are normal. I will go ahead and perform intraoperative cholangiogram at the cholecystectomy. History and Physical has been reviewed, including an updated exam of the patient. There are NO changes in the patient's condition. Risks, benefits, and alternatives have been discussed and questions answered. Patient agrees to proceed with procedure.
[2024-09-09] MEDS: ceFAZolin 3 GM/D5W 100 ML 100 ML IVPB (12:17)
--- NOTE | 2024-09-09 13:33 | S_PTH ---
PATIENT: Demetrius Saenz LOC: [facility] U#:[id number] AGE/SX: 69/M ROOM: RE09/09/[address]: Gurinder Wilkerson MD : 1955 BED: DIS: 09/09/2024 SPEC #: [id number] RECD: 09/10/24 10:26 STATUS: REGGIE REQ #: [id number] EILEEN: 09/09/24 13:[address]: Gurinder Wilkerson DEPT: [facility] Surgical RECD BY: Jessica Goncalves ENTERED: 09/10/24 10:26 SP TYPE: Surgical OTHR DR: Terese Pritchard MD Tissues: A - Gallbladder Procedures: Hematoxylin and Eosin Stain Gross and Microscopic Level 3
[2024-09-09] MEDS: BUPIVACAINE/EPINEPHRINE 0.5% 50 ML VIAL 30 ML INFILTRATE (13:36)
--- NOTE | 2024-09-09 15:01 | W.PM.PROC2 ---
Procedure Note - Detailed Date of Procedure 09/09/24 Pre-op Diagnosis chronic cholecystitis, gallbladder polyps, dilated common bile duct Post-op Diagnosis Same Procedure Performed Laparoscopic cholecystectomy with intraoperative cholangiogram Surgeon Gurinder Wilkerson MD [employer] Ramón Toure, [facility] Anesthesia General and Local Indications Patient has had right upper quadrant abdominal pain that came on the 1st time after a fatty meal and was associated with nausea and vomiting and radiation to his back. He has continued to have this pain to a lesser degree as he has switched to a low-fat diet. Pain is never really gone away. He had an ultrasound that showed multiple gallbladder polyps and a dilated common bile duct of 1.1 cm. He had a HIDA scan in August which showed an ejection fraction of only 2%. He is taken to surgery now for chronic cholecystitis, gallbladder polyps, dilated common bile duct. Findings Gallbladder was very distended and had chronic inflammation associated with it particular the in the cholecystohepatic triangle. He had fatty change of the liver. Intraoperative cholangiogram was difficult as his cystic duct was quite small. We were able to accomplish this and it was negative. It showed a dilated common bile duct but no obstruction and passage of contrast into the duodenum. No other significant findings were noted. Description of Procedure Patient was taken to surgery and induced into general anesthesia. The abdomen is prepped and draped. Trocars were placed in the usual fashion using [employer] optical trocars and a 5 mm camera. Patient was placed in reverse Trendelenburg. Gallbladder was extremely dilated. We used a laparoscopic aspirator and decompress the gallbladder. The cholecystotomy was closed with a Vicryl endoloop. The gallbladder was then retracted anterosuperiorly. It still was quite distended with fluid content. None the less, we were able to place traction on the infundibulum and performed dissection in the triangle of Calot. The cystic artery was lateral to the cystic duct and was anterior rather than being closer to the liver. We dissected the cystic artery out at more less completely. We dissected its path on the surface of the gallbladder. I could not provide any further traction on the cystic duct without dividing the artery so went ahead and securely clipped and divided it. We then were able to place more traction on the cystic duct. It was carefully dissected free from adhesions in the cholecystohepatic triangle. The gallbladder was also dissected free from some peritoneal attachments to the liver and dissected off the liver at its lower 3rd. Critical view was achieved. I then clipped the cystic duct near the gallbladder. We made a small opening in the cystic duct with the cystic duct scissors. I then was attempting to pass the cholangiogram catheter into this opening when the cystic duct broke away completely from the gallbladder. This did allow us to retract the gallbladder out of the gallbladder fossa more completely. I then was able to locate the cystic duct stump. It was clamped near its end. We still had adequate cystic duct and I made a new incision just below the clamp and was able to pass the cholangiogram catheter into the lumen. Cine fluoroscopy cholangiogram was then performed. Full-strength Omnipaque dye was used. Common bile duct did appear to be dilated as did intrahepatic ducts but contrast did pass into the duodenum normally with no opacities seen. The radiologist reviewed this cholangiogram intraoperatively and communicated his impressions as well. We then removed the cholangiogram catheter. I used a Vicryl endoloop as well as a clip to secure the end of the cystic duct. We then exposed the gallbladder and its remaining attachments to the liver. It was carefully divided from these attachments. Near the fundus of the gallbladder, it was intrahepatic and there was even a small strip of liver that was only a mm thick over the anterior surface of the fundus of the gallbladder. We dissected the gallbladder free from its remaining attachments to the liver. There was some bleeding from the liver bed where it was intrahepatic. This was mostly controlled with cautery. The gallbladder was then placed in an Endo-Catch bag retrieved from the 10/11 epigastric trocar site. I had to enlarge the epigastric trocar site to accommodate the gallbladder which was very large even when decompressed. The gallbladder was passed off as a specimen. I then replaced the 10 11 epigastric trocar and used a towel clip to occlude the skin and subcutaneous so we could re-insufflated. We looked again at the gallbladder fossa on the liver. It was irrigated and suction. Residual blood was irrigated and suctioned as well. There was still some bleeding where the gallbladder had been intrahepatic. We placed FloSeal over this area and held pressure with a Ray-Brittany sponge. Once we removed the Ray-Brittany sponge, there was no sign of bleeding or other problems. We irrigated the right upper quadrant out thoroughly. All residual blood clot was removed. I recheck the Vicryl endoloop and the clips that were securing the cystic duct stump, all looked good. There was no evidence of bleeding or bile leakage. I then evacuated CO2 and removed the trocar sleeves. Fascia at the epigastric trocar site was closed. The posterior fascia was closed with 3-0 Vicryl avhosr-op-jzhnw suture. The anterior rectus fascia was closed with 0 Vicryl tynyez-ku-akuhg mattress suture. Subcuticular 3-0 Vicryl suture were then placed in the skin. The epigastric incision and the other trocar sites were closed at the skin level with running 4-0 Monocryl skin suture. All wounds were dressed with Exofin surgical adhesive. Patient was then awakened and taken to recovery in good condition. Sponge and needle counts were correct x2. Estimated Blood Loss -50 Drains No Packing No Pathology Yes (Gallbladder) Complications None Condition Stable Disposition PACU [facility] Billing Surgery - Charge Forward: Surgery Billing (Laparoscopic cholecystectomy)
[2024-09-09] MEDS: fentaNYL CITRATE INJ (*CRX) 100 MCG/2 ML VIAL 25 MCG IV PUSH ×3 (15:57→16:15)
[2024-09-09] MEDS: ONDANSETRON INJ 4 MG/2 ML VIAL IV PUSH (16:30)
[2024-09-09] MEDS: oxyCODONE/ACETAMINOPHEN (*CRX) 5-325 MG TABLET 1 TABLET PO (16:35)
== END 2024-09-09 17:17 | disposition home or self-care (01) ==
PROVIDERS: PCP Family Medicine; Visit Provider Surgery
PROC: 0FT44ZZ Resection of Gallbladder, Percutaneous Endoscopic Approach (ICD-10-PCS; CPT 47562; principal; 2024-09-09 12:00)
DX: K80.20 Calculus of gallbladder without cholecystitis without obstruction (principal); K86.2 Cyst of pancreas; G89.18 Other acute postprocedural pain; J44.9 Chronic obstructive pulmonary disease, unspecified; I10 Essential (primary) hypertension; G47.33 Obstructive sleep apnea (adult) (pediatric); I73.9 Peripheral vascular disease, unspecified; M19.90 Unspecified osteoarthritis, unspecified site; E66.9 Obesity, unspecified; Z68.36 Body mass index [BMI] 36.0-36.9, adult; Z79.02 Long term (current) use of antithrombotics/antiplatelets; Z79.51 Long term (current) use of inhaled steroids; Z79.891 Long term (current) use of opiate analgesic; Z79.01 Long term (current) use of anticoagulants; Z79.85 Long-term (current) use of injectable non-insulin antidiabetic drugs; Z98.1 Arthrodesis status; Z87.891 Personal history of nicotine dependence; Z80.9 Family history of malignant neoplasm, unspecified
CPT/HCPCS: 47563; 74300; 88304; A9270; J0690; J1100; J1171; J1885; J2003; J2250; J2405; J2704; J3010; J7120; Q9966